=== PATIENT | female | born 1950 | race Caucasian/White ===

== ENCOUNTER 2020-07-12 11:14 | Outpatient (CLI) | payer MEDICARE, OTHER, SELFPAY ==
[2020-07-12 11:48] LABS: Basophils Absolute Auto 0.1 K/mm3 (0.0-0.1); Basophils Percent Auto 1.1 % (0.2-1.2); Eosinophils Absolute Auto 0.2 K/mm3 (0-0.3); Eosinophils Percent Auto 2.8 % (0-4.4); Hematocrit 35.1 % (37.0-47.0); Hemoglobin 11.4 g/dL (12.0-15.0); Immature Granulocyte Absolute 0.03 K/mm3 (0.00-0.031); Immature Granulocyte Percent A 0.6 % (0-0.5); Lymphocytes Absolute Auto 1.41 K/mm3 (0.9-3.2); Lymphocytes Percent Auto 26.3 % (18.3-44.2); Mean Corpuscular HGB Conc 32.5 g/dl (32-36); Mean Corpuscular Hemoglobin 28.2 pg (26-34); Mean Corpuscular Volume 86.9 fl (80-100); Mean Platelet Volume 8.8 fl (7.4-10.4); Monocytes Absolute Auto 0.3 K/mm3 (0.1-0.6); Neutrophils Absolute Auto 3.4 K/mm3 (1.3-6.7); Neutrophils Percent Auto 63.2 % (45.5-73.1); Platelet Count Result 184 k/mm3 (150-375); Red Blood Count 4.04 M/mm3 (4.2-5.4); Red Cell Distribution Width 13.2 % (11.5-14.5); White Blood Count 5.4 K/mm3 (4.5-10.0)
--- NOTE | 2020-07-12 11:51 | ECG_ITS ---
Measurements Intervals [place] Rate: 63 P: 55 MT: 156 QRS: 23 QRSD: 97 T: 33 QT: 416 QTc: 427 Interpretive Statements SINUS RHYTHM INCOMPLETE RIGHT BUNDLE BRANCH BLOCK BORDERLINE ECG Electronically Signed On 07-12-2020 11:58:55 GLOBAL COMMODITY MANAGER by Wan Pedraza D.O.
[2020-07-12 12:02] LABS: Anion Gap 2 mmol/L (8-16); Aspartate Amino Transferase 22 U/L (14-36); Blood Urea Nitrogen 17 mg/dL (7-17); Calcium 9.4 mg/dL (8.4-10.2); Carbon Dioxide 31 mmol/L (22-30); Chloride 104 mmol/L (98-107); Cholesterol 171 mg/dL (0-200); Estimated Glomerular Filt Rate > 60; Glucose 233 mg/dL (65-105); HDL Direct 74 mg/dL; Potassium 4.2 mmol/L (3.4-5.0); Sodium 137 mmol/L (137-145); Triglycerides 108 mg/dL (<150)
[2020-07-12 12:13] LABS: LDL Cholesterol Direct 81 mg/dL
== END 2020-07-12 11:15 | disposition home or self-care (01) ==
PROVIDERS: PCP Family Medicine Adolescent Medicine; Visit Provider Internal Medicine Cardiovascular Disease
DX: I48.0 Paroxysmal atrial fibrillation (principal); I10 Essential (primary) hypertension; Z82.49 Family history of ischemic heart disease and other diseases of the circulatory system; G47.33 Obstructive sleep apnea (adult) (pediatric); E78.2 Mixed hyperlipidemia; E11.69 Type 2 diabetes mellitus with other specified complication
CPT/HCPCS: 36415; 80048; 80061; 84450; 85025; 93005

== ENCOUNTER → 2021-09-26 08:40 | Outpatient (CLI) | payer MEDICARE, OTHER, SELFPAY ==
--- NOTE | ~2021-09-26 | MR_ITS ---
EXAMINATION: MR lumbar spine wo con DATE: 09/26/2021 09:20 INDICATION: Low back pain. Right leg pain. TECHNIQUE: Magnetic resonance imaging (MRI) of the lumbar spine was performed without intravenous con trast. Sequences included sagittal T2-weighted FSE, sagittal T2-weighted FS FSE, sagittal T1-weighted FSE, and axial T2-weighted FSE. COMPARISON: None FINDINGS: Bone alignment is normal. Vertebral body heights are normal. There is severely decreased di sc height at L5-S1 with endplate remodeling. The distal spinal cord signal intensity is normal. The c onus medullaris is at L1. The following disc levels are specifically discussed: L1-L2: The disc does not extend beyond the endplate margin. There is no facet joint osteoarthritis. T here is no neural foraminal stenosis. There is no central canal stenosis. L2-L3: There is a central protrusion with annular fissure. There is mild right facet joint osteoarthr itis. There is mild right neural foraminal stenosis. There is mild central canal stenosis. L3-L4: The disc is bulging. There is mild bilateral facet joint osteoarthritis. There is mild bilater al neural foraminal stenosis. There is mild central canal stenosis. L4-L5: The disc is bulging with superimposed central extrusion. There is mild right and moderate left facet joint osteoarthritis. There is mild bilateral neural foraminal stenosis. There is moderate nikita tral canal stenosis. L5-S1: The disc is bulging and has an annular fissure. There is moderate bilateral facet joint osteoa rthritis. There is mild bilateral neural foraminal stenosis. There is mild central canal stenosis. IMPRESSION: 1. Severe lower lumbar spondylosis. Reviewed, dictated and finalized at location A.
== END ==
PROVIDERS: PCP Family Medicine Adolescent Medicine; Visit Provider Family Medicine Adolescent Medicine
DX: M47.817 Spondylosis without myelopathy or radiculopathy, lumbosacral region (principal); M54.31 Sciatica, right side; M48.07 Spinal stenosis, lumbosacral region
CPT/HCPCS: 72148

== ENCOUNTER → 2021-12-28 07:42 | Outpatient (CLI) | payer MEDICARE, OTHER, SELFPAY ==
--- NOTE | ~2021-12-28 | US_ITS ---
US right upper quadrant INDICATION: Right upper quadrant pain. Elevated liver enzymes. PROCEDURE: Realtime right upper abdominal ultrasound. COMPARISON: No prior studies for comparison. FINDINGS: The pancreas is normal without focal mass or pancreatic ductal dilation. Liver echotexture is increased, consistent with fatty infiltration. There is normal directional flow in the portal ve in. There are gallstones. Common bile duct measures 9 mm. No sonographic Watts's sign. IMPRESSION: 1: Cholelithiasis with biliary dilatation. Consider cholecystitis in the appropriate clinical setting . 2: Hepatic steatosis. Reviewed, dictated and finalized at location A. IMPRESSION: 1: Cholelithiasis with biliary dilatation. Consider cholecystitis in the approp riate clinical setting. 2: Hepatic steatosis.
== END ==
PROVIDERS: PCP Family Medicine Adolescent Medicine; Visit Provider Physician Assistant
DX: R10.11 Right upper quadrant pain (principal); K76.0 Fatty (change of) liver, not elsewhere classified; K80.20 Calculus of gallbladder without cholecystitis without obstruction
CPT/HCPCS: 76705

== ENCOUNTER 2022-01-08 13:28 | Outpatient (CLI) | payer MEDICARE, OTHER, SELFPAY ==
--- NOTE | 2022-01-08 13:43 | ECG_ITS ---
Measurements Intervals [place] Rate: 73 P: 61 [place]: 154 QRS: -14 QRSD: 93 T: 5 QT: 396 QTc: 439 Interpretive Statements SINUS RHYTHM COMPARED TO ECG 07/12/2020 11:57:02 NO SIGNIFICANT CHANGES Electronically Signed On 01-08-2022 16:42:41 CDT by Barby Oh M.D.
[2022-01-08 14:22] LABS: Amylase 50 U/L (30-110)
== END 2022-01-08 13:29 | disposition home or self-care (01) ==
LOC: ANHSURGERY 13:38
PROVIDERS: PCP Family Medicine Adolescent Medicine; Visit Provider Surgery
DX: K80.10 Calculus of gallbladder with chronic cholecystitis without obstruction (principal); I10 Essential (primary) hypertension; Z01.818 Encounter for other preprocedural examination
CPT/HCPCS: 36415; 82150; 86850; 86900; 86901; 93005

== ENCOUNTER 2022-01-11 14:52 | Inpatient (IN) | payer MEDICARE, OTHER, SELFPAY ==
--- NOTE | 2022-01-08 09:45 | PC.NURSE ---
Report to the Outpatient Waiting Room, entrance under the green pavilion located off [facility], at time __1000 on date _01/10/22 . OR Time: 1200 . - You and your visitor will be asked a series of questions to screen for COVID 19 for your protection. - Only one visitor is allowed at this time. - The patient visitor is requested to leave or wait in car when not with patient. - A mask is required within the hospital. Patients may have clear liquids (water, carbonated beverages, clear teas, apple juice) until 3 hours prior to surgery with a maximum of 20 ounces. - No food from midnight until time of surgery - Infants may have breast milk until 4 hours before surgery, infant formula 6 hours prior to surgery. - Children will be allowed to drink immediately following surgery. If applicable, please bring a bottle or sippy cup to assist with drinking. Juice, water, soda, and popsicles are readily available. For infants on formula, please bring formula the day of surgery. Pacifiers are allowed. Take the following medications with a SIP of water the morning of surgery: ___METOPROLOL Medications to discontinue per physician APIXABAN 2 DAYS PRE OP PER DR HUMPHRIES Date to take last dose___01/07/22 Please no make-up, nail bengali, hairspray, perfume, deodorant, or body powder the day of surgery. No jewelry (including any body piercings) or valuables the day of surgery, leave them at home. Please take a shower or bath the night before, or the morning of, surgery with an antibacterial soap. Wear comfortable, loose fitting clothing. Children are encouraged to wear pajamas. - Jewelry must be removed prior to entering the operating room. Rings and piercings that are not removed may be cut off. - The hospital will not accept responsibility for valuables. - Please leave all valuables, including medications, at home the day of surgery.HIBICLENS SHOWER MORNING OF SURGERY If you are going home after surgery, a licensed reach lift truck driver must drive you home. - NO public transportation without another adult. - We recommend that an adult stay with you for 24 hours following discharge. - We also recommend that you do not drive, make important decision, drink alcoholic beverages, or take any drugs that were not prescribed by your health care provider for at least 24 hours after your discharge time. For Pediatric surgeries, we recommend two adults accompany the child home (only one inside the building at this time). Follow any additional instructions given to you from your surgeon. If you or anyone in your household have experienced Covid symptoms in the past week, please notify your surgeon or the nurse liaison at the phone number below for possible testing. Telephone instructions given to ___PATIENT and asked if any additional questions and then verbalized understanding. Patient advised to call surgeon office or pre surgery nurse liaison [phone] if any additional questions.
[2022-01-08 11:05] VITALS: BMI 31.9
--- NOTE | 2022-01-09 13:45 | WPDANESEPPF ---
Anes - Initial Pre Proc Eval Procedure: Operation Date: 01/10/22 12:00 Proposed Procedures p Laparoscopic Cholecystectomy with Intraoperative Cholangiogram, - Rocco Taylor MD s Repair Periumbilical Ventral Hernia with Mesh - Rocco Taylor MD Date/Time: 01/09/22 13:45 Surgeon: Rocco Taylor MD Pre Op Diagnosis: chronic cholecystitis with stones, ventral hernia Patient Data Age: 71 Gender: F Height: 1.73 m Weight: 95.3 kg Allergies Allergy/AdvReac Type Severity Reaction Status Date / Time quinapril Allergy Intermediate Anaphylactic Verified 01/10/22 10:15 Shock codeine Allergy Mild Vomiting Verified 01/10/22 10:15 Penicillins Allergy Mild Rash Verified 01/10/22 10:15 lisinopril Allergy Unknown Hives Verified 01/10/22 10:15 hydrocodone AdvReac Unknown N&V Verified 01/10/22 10:15 metformin AdvReac Unknown diarrhea Verified 01/10/22 10:15 tramadol Allergy Mild Nausea Uncoded 01/10/22 10:15 Home Medications Medication Instructions Recorded Confirmed Type apixaban 5 mg tablet (Eliquis) 5 mg PO BID 09/17/21 01/10/22 History hydrochlorothiazide 25 mg tablet 25 mg PO DAILY 09/17/21 01/10/22 History simvastatin 5 mg tablet 5 mg PO EVERY OTHER DAY 09/17/21 01/10/22 History glimepiride 2 mg tablet See Rx Instructions .Route 10/22/21 01/10/22 Rx .COMPLEX #90 tabs losartan 100 mg tablet 100 mg PO DAILY #90 tabs 10/29/21 01/10/22 Rx blood sugar diagnostic (OneTouch #100 ea 12/07/21 01/07/22 Rx Ultra Test strips) metoprolol succinate 50 mg See Rx Instructions .Route 12/17/21 01/10/22 Rx tablet,extended release 24 hr .COMPLEX #90 tabs hydroxyzine HCl 25 mg tablet 25 mg PO TID PRN itching #60 tabs 12/26/21 01/10/22 Rx cetirizine 10 mg tablet (Zyrtec) 10 mg PO DAILY 01/08/22 01/10/22 History ibuprofen 400 mg tablet 400 mg PO PRN PRN Pain 01/08/22 01/10/22 History potassium chloride 10 mEq 10 meq PO DAILY 01/08/22 01/10/22 History tablet,extended release Patient hx anesthesia problems: none Family hx anesthesia problems: none Results Review: All pre-operative results and documents have been reviewed as part of the pre-operative evaluation. [facility] Past Medical History Medical History (Updated 01/09/22 @ 13:46 by Silvino Martínez DO) Afib Asthma Diabetes type 2, controlled High cholesterol HTN (hypertension) ZURDO (obstructive sleep apnea) PONV (postoperative nausea and vomiting) Surgical History Surgical History Hx of prior ablation treatment Hx of tonsillectomy Family History Family History Father Cerebrovascular accident Diabetes mellitus Heart disease Laryngeal cancer Mother Glioblastoma Sibling Diabetes mellitus CHF (congestive heart failure) Social History Social History Social History: caffeine use- 1-2 cups of tea per week Smoking packs per day: 0.25 Smoking cigarettes per day: 5.0 Years smoked: 10 Smoking pack-years: 2.50 Smoking status: Former smoker Tobacco type: cigarettes Second hand tobacco smoke exposure: No Smoking end date: 06/02/79 Alcohol intake: current Alcohol use details: rare use- wine Substance use: never Substance use type: does not use Living arrangements: with family Additional living arrangements comments: Patient is . Two people total live in the home. 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
[2022-01-10] VITALS (13 sets, daily range): BP systolic 108–168; BP diastolic 48–71; PULSE 50–73; RESP 14–16; TEMP 36–36.6; O2SAT 99–100
[2022-01-10] MEDS: ACETAMINOPHEN 500 MG TABLET 1000 MG PO (10:23)
[2022-01-10 10:48] LABS: Glucose Point of Care 194 mg/dl (65-105)
[2022-01-10] MEDS: LACTATED RINGERS 1,000 ML 30 ML IV CONT ×2 (10:55→14:13)
[2022-01-10] MEDS: KETOROLAC 15 MG/ML VIAL (*BKC) IV PUSH (10:55)
--- NOTE | 2022-01-10 12:15 | WPDHPUPDATE1 ---
History and Physical Update Update Date/Time: 01/10/22 12:15 History and Physical has been reviewed, including an updated exam of the patient. There are NO changes in the patient's condition. Risks, benefits, and alternatives have been discussed and questions answered. Patient agrees to proceed with procedure.
[2022-01-10] MEDS: ceFAZolin 2 GM/D5W 50 ML 2 GM/50 ML BAG IVPB ×2 (12:21→20:42)
[2022-01-10] MEDS: BUPIVACAINE/EPINEPHRINE 0.25% 50 ML VIAL INFILTRATE (13:31)
[2022-01-10 14:27] LABS: Glucose Point of Care 204 mg/dl (65-105)
[2022-01-10] MEDS: ONDANSETRON INJ 4 MG/2 ML VIAL IV PUSH (15:09)
--- NOTE | 2022-01-10 15:44 | W.PM.PROC2 ---
Procedure Note - Detailed Date of Procedure 01/10/22 Pre-op Diagnosis chronic cholecystitis with stones, ventral hernia Post-op Diagnosis Other (Choledocholithiasis with chronic cholecystitis, ventral hernia) Procedure Performed Laparoscopic cholecystectomy with intraoperative cholangiogram, repair of ventral hernia with Ventralex ST underlay mesh Surgeon Rocco Taylor MD Packing Floor Worker Juany Mackey EMBRYOLOGY PROFESSOR Anesthesia General and Local (0.25% bupivacaine with epinephrine) Indications Patient is a 71-year-old woman with recurrent right upper quadrant abdominal pain, abnormal LFTs and some other symptoms of common bile duct stones. She is taken to surgery now for laparoscopic cholecystectomy. She also has a ventral hernia just below the umbilicus and is having this repaired at the same procedure. Findings Intraoperative cholangiogram showed at least 1 if not several stones in the distal common bile duct. The gallbladder itself showed evidence of chronic inflammation and gallstones. Ventral hernia was just below the umbilicus and there was a small umbilical hernia just above it. Description of Procedure The patient was taken to surgery and induced into general anesthesia. The abdomen was prepped and draped. Trocars were placed in the usual fashion using local anesthetic and applied Medical optical trocars. A 5 mm camera was used. After insufflation, some omental adhesions were taken down off the gallbladder. We then used a laparoscopic aspirator and decompress the gallbladder. The cholecystotomy was closed with a Vicryl endoloop. The gallbladder was then retracted anterosuperiorly. Dissection was carried out in the cholecystohepatic triangle. The cystic duct and cystic artery were dissected out very clearly. We dissected the gallbladder off the liver at its lower 3rd. Critical view was achieved. I then securely clipped and divided the cystic artery. A clip was placed on the distal gallbladder just above the cystic duct. The cystic duct scissors were then used and a small opening was made in the very proximal cystic duct. Cholangiogram catheter was then passed into the cystic duct. C-arm fluoroscopy was brought into the field and positioned appropriately. We proceeded then with cine fluoroscopy intraoperative cholangiogram. 2 runs were made. The duodenum never filled. It appeared that there was distal common bile duct stones preventing duodenal filling. The radiologist looked at the films and also felt there was at least 1 and possibly several stones in the distal common bile duct. The cholangiogram catheter was then removed. We securely clipped and divided the cystic duct. The gallbladder was then dissected free of the remaining attachments to the liver. Cautery was used for hemostasis. Once the gallbladder was freed entirely, it was placed in Endo-Catch bag and retrieved through the 10 11 epigastric trocar site. We replaced the epigastric trocar. We then reviewed the gallbladder fossa and right upper quadrant. Irrigation and suctioning were then carried out. All looked good with no evidence of bleeding or bile leakage. I used the Jaycob cone and Jaycob-Mira suture Passer device. An 0 Vicryl suture was used to close the fascia at the epigastric trocar site. We then evacuated CO2 and removed the trocar sleeves. All skin wounds were closed with subcuticular 4-0 Monocryl skin suture. We then turned our attention to the ventral hernia. An infraumbilical curved incision was marked on the skin. Local was infiltrated in the area of the anticipated incision. Incision was made dissection through the skin into the area of the hernia. The hernia was quite large. We dissected the hernia free from the surrounding subcutaneous. The hernia defect was below the umbilicus but there was also a small umbilical hernia just a bit above the ventral hernia. Once the hernia had been dissected down to the fascia, I divided the hernia sac at the fascial le
--- NOTE | 2022-01-10 15:45 | WPDCN ---
Assessment and Plan Assessment and plan (1) Chronic cholecystitis: Code(s): K81.1 - Chronic cholecystitis Status: Acute Assessment and Plan: Postoperative day 0 status post laparoscopic cholecystectomy with IOC. Wound care, pain control deferred to primary service. (2) Choledocholithiasis: Code(s): K80.50 - Calculus of bile duct without cholangitis or cholecystitis without obstruction Status: Acute Assessment and Plan: Dr. Hagen consulted for ERCP. (3) Ventral hernia: Code(s): K43.9 - Ventral hernia without obstruction or gangrene Status: Acute Assessment and Plan: Postoperative day 0 status post hernia repair with mesh. (4) Type 2 diabetes mellitus with hyperglycemia: Code(s): E11.65 - Type 2 diabetes mellitus with hyperglycemia Status: Acute Assessment and Plan: Glucose has been running high recently. Initiate sliding scale insulin, Accu-Cheks, and hypoglycemic protocol. Check A1c. (5) Hypertension: Code(s): I10 - Essential (primary) hypertension Status: Acute Assessment and Plan: Blood pressures were reviewed and they are stable. Antihypertensives will reviewed and resumed as appropriate. Plan Thank you for allowing us to participate in this patient's care. Please do not hesitate to contact us with any questions. Supervising physician for this medical consultation is Dr. Ruthy Bridges. HPI Data of Consult Date/Time: 01/10/22 15:45 Requesting Physician: Rocco Taylor MD Consult Narrative Reason for consult: Postoperative medical management. Narrative: This is a very pleasant 71-year-old female with type 2 diabetes mellitus, hypertension, hyperlipidemia, sleep apnea, and paroxysmal atrial fibrillation status post cardiac ablation whom the hospitalist service has been consulted for management of her medical conditions postoperatively. She has been having gallbladder attacks since December 24 for which she was seen by both General surgery and Gastroenterology. A right upper quadrant ultrasound done on December 28 showed cholelithiasis with biliary dilatation and plans were made for cholecystectomy with IOC today. Concurrently she underwent repair of a ventral hernia with mesh. There were no immediate complications documented though she was noted to have choledocholithiasis and thus Dr. Hagen has been consulted for ERCP. Her estimated blood loss was minimal. At the time my evaluation she is doing well and complains of muscle pain in her abdomen from the incisions. She has not had postoperative fever, chills, sweats, chest pain, shortness to breath, or vomiting. Review of Systems Review of Systems: Twelve systems were reviewed. Her glucose has been running high, over 300 the last several days, which is unusual for her. No blurry vision, polydipsia, or polyuria. She is not currently using her CPAP as there is apparently a recall on the machine. Except as documented, all other systems were reviewed and are negative. [facility] Past Medical History Medical History (Updated 01/11/22 @ 00:43 by Candis Hyatt PA-C) Asthma Diabetic polyneuropathy Hyperlipidemia Hypertension Obstructive sleep apnea Not currently using CPAP. Paroxysmal atrial fibrillation Status post cardiac ablation. Type 2 diabetes mellitus Surgical History Surgical History (Updated 01/11/22 @ 00:34 by Candis Hyatt PA-C) History of bunionectomy History of cardiac radiofrequency ablation (2015) History of laparoscopic cholecystectomy (01/10/22) With intraoperative cholangiogram. History of surgical removal of ganglion cyst Right 1st toe, scalp. History of tonsillectomy History of ventral hernia repair (01/10/22) Done at the time of laparoscopic cholecystectomy. Family History Family History Father Cerebrovascular accident Diabetes mellitus Heart disease L
--- NOTE | 2022-01-10 16:11 | WPDGICN ---
Assessment and Plan Assessment and plan (1) Choledocholithiasis: Code(s): K80.50 - Calculus of bile duct without cholangitis or cholecystitis without obstruction Status: Acute Assessment and Plan: OR cholangiogram today confirms stone or stones in the distal common bile duct. I explained to the patient that we can usually remove the stones by ERCP. I explained the use of anesthesia, the possible risk of bleeding, perforation, or pancreatitis. I Explainedthe pancreatitis occurs about 3% of individuals. We try to reduce the risk by avoiding cannulation of the pancreatic duct and by administering and anti-inflammatory suppository. She understands the the procedure and risks and wishes to proceed. (2) Afib: Code(s): I48.91 - Unspecified atrial fibrillation Status: Acute Assessment and Plan: she is on apixaban but this has been held for the last several days. (3) Gallstones: Code(s): K80.20 - Calculus of gallbladder without cholecystitis without obstruction Status: Acute Assessment and Plan: She underwent laparoscopic cholecystectomy today. GI Consult Note Consult date/time: 01/10/22 16:11 HPI: Maegan Irving is a 71 year old female with atrial fibrillation, hypertension, and diabetes, whom I am asked to see because of suspected choledocholithiasis. She has developed epigastric pain that was found to be due to gallstones . She underwent laparoscopic cholecystectomy today and a cholangiogram revealed stone material in the very distal common bile duct. The patient states that her pain a week ago Friday was accompanied by dark urine and some itching. She had blood work on December 26 that revealed a bilirubin of 3, AST 146 ALT 441 and alkaline phosphatase 196. These were repeated January 07 and were nearly normal with bilirubin 0.9 AST 52 and ALT down to 83 patient states that later that day she developed pain and her urine became dark again when she had an attack. She has no history of liver disease or hepatitis he has never had pancreatitis. She is on apixaban but this has been held prior to her surgery. Review of Systems Review of Systems: All systems reviewed & are unremarkable except as noted in HPI and below PMFSH Past Medical History Medical History Afib Asthma Diabetes type 2, controlled High cholesterol HTN (hypertension) ZURDO (obstructive sleep apnea) PONV (postoperative nausea and vomiting) Surgical History Surgical History Hx of prior ablation treatment Hx of tonsillectomy Family History Family History Father Cerebrovascular accident Diabetes mellitus Heart disease Laryngeal cancer Mother Glioblastoma Sibling Diabetes mellitus CHF (congestive heart failure) Social History Social History Social History: caffeine use- 1-2 cups of tea per week Smoking packs per day: 0.25 Smoking cigarettes per day: 5.0 Years smoked: 10 Smoking pack-years: 2.50 Smoking status: Former smoker Tobacco type: cigarettes Second hand tobacco smoke exposure: No Smoking end date: 06/02/79 Alcohol intake: never Alcohol use details: rare use- wine Substance use: never Substance use type: does not use Living arrangements: with family Additional living arrangements comments: Patient is . Two people total live in the home. 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
[2022-01-10] MEDS: LACTATED RINGERS 1,000 ML 100 ML IV CONT (16:58)
[2022-01-10] MEDS: ACETAMINOPHEN 500 MG TABLET PO (21:57)
[2022-01-10 23:11] LABS: Glucose Point of Care 252 mg/dl (65-105)
[2022-01-11] VITALS (15 sets, daily range): BP systolic 131–169; BP diastolic 50–71; PULSE 45–74; RESP 12–25; TEMP 36.2–36.6; O2SAT 97–100
--- NOTE | ~2022-01-11 | XR_ITS ---
XR cholangiogram surg 1st inj DATE: 01/10/2022 13:27 INDICATION: Stones. Intraoperative cholangiogram. TECHNIQUE: 56.5 seconds fluoroscopy time 27.43 mGY 2 Cine runs during intraoperative injection of contrast material COMPARISON: None FINDINGS: There are multiple filling defects within the common bile duct, with a larger stone creatin g a meniscus sign distally, obstructing passage of contrast material, with no contrast material reach ing the duodenum. Common bile duct is mildly dilated. IMPRESSION: Choledocholithiasis, with obstruction of the distal common bile duct Reviewed, dictated and finalized at [facility]. Reviewed, dictated and finalized at location [facility]. IMPRESSION: Choledocholithiasis, with obstruction of the distal common bile regina t
--- NOTE | ~2022-01-11 | XR_ITS ---
XR ERCP ERCP procedure TECHNIQUE: Fluoroscopy used during ERCP examination performed by [David Hagen MD] on 022. 74 seconds of fluoroscopy time with 2 fluoroscopic images captured. ] FINDINGS: Correlate with procedure note. IMPRESSION: Fluoroscopy used during ERCP procedure. Please refer to procedural report for details. Reviewed, dictated and finalized at location [facility].
[2022-01-11] MEDS: IBUPROFEN IV 800 MG/200 ML 800 MG/200 ML BAG 400 MG IVPB (01:01)
[2022-01-11] MEDS: LACTATED RINGERS 1,000 ML 100 ML IV CONT (03:40)
[2022-01-11] MEDS: ceFAZolin 2 GM/D5W 50 ML 2 GM/50 ML BAG IVPB ×2 (03:43→12:05)
[2022-01-11 05:42] LABS: Hemoglobin 10.1 g/dL (12.0-15.0); Mean Corpuscular HGB Conc 32.6 g/dl (32-36); Mean Corpuscular Hemoglobin 29.4 pg (26-34); Mean Corpuscular Volume 90.1 fl (80-100); Mean Platelet Volume 9.6 fl (7.4-10.4); Platelet Count Result 165 k/mm3 (150-375); Red Blood Count 3.44 M/mm3 (4.2-5.4); Red Cell Distribution Width 12.8 % (11.5-14.5); White Blood Count 7.5 K/mm3 (4.5-10.0)
[2022-01-11 05:52] LABS: Alanine Aminotransferase 140 U/L (6-35); Albumin Level 3.3 g/dL (3.5-5.1); Alkaline Phosphatase 150 U/L (38-126); Anion Gap 8 mmol/L (8-16); Aspartate Amino Transferase 49 U/L (14-36); Bilirubin,Total 0.6 mg/dL (0.2-1.3); Blood Urea Nitrogen 34 mg/dL (7-17); Calcium 8.3 mg/dL (8.4-10.2); Carbon Dioxide 29 mmol/L (22-30); Chloride 101 mmol/L (98-107); Estimated CRCL calculation 34 ml/min; Estimated Glomerular Filt Rate 32; Glucose 158 mg/dL (65-110); Potassium 3.4 mmol/L (3.4-5.0); Sodium 138 mmol/L (137-145)
[2022-01-11 05:55] LABS: Hemoglobin A1C 6.8 % (<5.7)
[2022-01-11 07:40] LABS: Glucose Point of Care 151 mg/dl (65-105)
--- NOTE | 2022-01-11 08:27 | PM.PNGS ---
Progress Note: A&P Assessment and Plan (1) ANAYA (acute kidney injury): Code(s): N17.9 - Acute kidney failure, unspecified Status: Acute Assessment and Plan: creatinine has increased markedly from preop and is 1.6 today. Will discontinue IV ibuprofen and start saline with 20 mEq KCL. Recheck again tomorrow. Hopefully will resolve quickly. (2) Ventral hernia: Code(s): K43.9 - Ventral hernia without obstruction or gangrene Status: Chronic Assessment and Plan: Repair intact. Doing well (3) Chronic cholecystitis due to cholelithiasis with choledocholithiasis: Code(s): K80.64 - Calculus of gallbladder and bile duct with chronic cholecystitis without obstruction Status: Chronic Assessment and Plan: to have ERCP today with common bile duct stones noted on cholangiogram yesterday. Doing well status post laparoscopic cholecystectomy. (4) Type 2 diabetes mellitus: Code(s): E11.9 - Type 2 diabetes mellitus without complications Status: Acute Assessment and Plan: Hospitalist following and managing diabetes. Subjective Subjective Date/Time Seen: 01/11/22 08:27 Post Op day: 1 Patient reports: no new complaints, tolerating liquids well and afebrile Interval history: Mild discomfort status post laparoscopic cholecystectomy yesterday. No new complaints or problems. Review of Systems Review of Systems: All systems reviewed & are unremarkable except as noted in HPI and below ( HPI) Exam Const: General: comfortable and no acute distress; No confusion Orientation/consciousness: patient oriented x3 and No confusion GI: Inspection: non-distended and incision ( incisions dry and healing well) GI Palp: Yes Soft to palpation, Yes Tenderness to palpation present (GI), No Guarding due to palpation present (GI) and No Rebound tenderness present Auscultation: normal bowel sounds Neuro: General: patient oriented x3, no focal motor deficits and No confusion Extrem: General: no calf tenderness and no edema Psych: Affect: normal affect Insight: Good insight present (Psych) Judgement: Good judgement present (Psych) Objective Data Vital Signs Vital Signs: Vital Signs - 24 hr 01/10/22 10:31 01/10/22 14:13 01/10/22 14:25 Temperature 36.0 C L 36.4 C L Pulse Rate 73 61 56 L Respiratory Rate 16 14 16 Blood Pressure 121/57 L 108/48 L 111/52 L Pulse Oximetry 100 100 100 Oxygen Delivery Room Air Simple Face Mask Simple Face Mask Oxygen Flow Rate 6 6 01/10/22 14:30 01/10/22 14:45 01/10/22 14:49 Temperature Pulse Rate 63 52 L Respiratory Rate 14 14 Blood Pressure 116/55 L 129/54 L Pulse Oximetry 100 100 100 Oxygen Delivery Simple Face Mask Simple Face Mask Room Air Oxygen Flow Rate 6 6 01/10/22 15:00 01/10/22 15:15 01/10/22 15:40 Temperature 36.5 C Pulse Rate 54 L 59 L 50 L Respiratory Rate 14 16 14 Blood Pressure 124/49 L 137/55 L 133/48 L Pulse Oximetry 100 100 99 Oxygen Delivery Room Air Room Air Oxygen Flow Rate 01/10/22 15:55 01/10/22 16:25 01/10/22 17:25 Temperature 36.3 C L 36.4 C L 36.4 C Pulse Rate 50 L 54 L 62 Respiratory Rate 16 14 14 Blood Pressure 124/71 140/56 L 168/57 H Pulse Oximetry 100 99 99 Oxygen Delivery Oxygen Flow Rate 01/10/22 20:31 01/11/22 00:54 01/11/22 01:01 Temperature 36.6 C 36.5 C 36.5 C Pulse Rate 59 L 58 L Respiratory Rate 16 12 Blood Pressure 145/60 H 142/53 H Pulse Oximetry 100 97 Oxygen Delivery Oxygen Flow Rate 01/11/22 03:56 Temperature 36.4 C L Pulse Rate 53 L Respiratory Rate 16 Blood Pressure 142/59 H Pulse Oximetry 99 Oxygen Delivery Oxygen Flow Rate Intake/Output Intake/Output: Intake & Output 01/08/22 01/09/22 01/10/22 01/11/22 23:59 23:59 23:59 23:59 Intake Total 400 1250 Output Total 400 Balance 400 850 Meds/Results Medications: Active Medications Generic Name Dose Route Start Last Admin Trade Name Peter Ramirez
[2022-01-11] MEDS: LOSARTAN POTASSIUM 100 MG TABLET PO (09:02)
[2022-01-11] MEDS: METOPROLOL SUCCINATE EXT REL 50 MG TABCR BY MOUTH (09:02)
[2022-01-11] MEDS: KCL 20MEQ/0.9% SOD CHL 1,000 ML 125 ML IV CONT ×2 (09:30→20:51)
[2022-01-11] MEDS: ACETAMINOPHEN 500 MG TABLET PO (09:31)
--- NOTE | 2022-01-11 11:01 | PM.IMPN ---
Progress Note: A&P Assessment and Plan (1) Chronic cholecystitis: Code(s): K81.1 - Chronic cholecystitis Status: Acute Assessment and Plan: Postoperative day 1 status post laparoscopic cholecystectomy with IOC. Wound care, pain control deferred to surgery. LFTs- AST 49, ALT 140, Alk Phos 150, Tbili 0.6 (2) Choledocholithiasis: Code(s): K80.50 - Calculus of bile duct without cholangitis or cholecystitis without obstruction Status: Acute Assessment and Plan: Dr. Hagen consulted for ERCP today. (3) ANAYA (acute kidney injury): Code(s): N17.9 - Acute kidney failure, unspecified Status: Acute Assessment and Plan: BUN 34, creatinine 1.6, GFR 32. Baseline GFR >60. holding HCTZ. Consider holding ARB if renal function is still elevated in am. Continue IV hydration. Monitor strict I/O. Repeat chemistry tomorrow. (4) Ventral hernia: Code(s): K43.9 - Ventral hernia without obstruction or gangrene Status: Chronic Assessment and Plan: Postoperative day 1 status post hernia repair with mesh. Managed per Surgery. (5) Type 2 diabetes mellitus with hyperglycemia: Code(s): E11.65 - Type 2 diabetes mellitus with hyperglycemia Status: Acute Assessment and Plan: Serum and POC glucose reviewed and <180 mg/dL today. A1c 6.8%. She is not on home medications for diabetes. Continue aspart sliding scale insulin, Accu-Cheks, and hypoglycemic protocol. Consider adding basal insulin if glucose is >200 mg/dL. (6) Hypertension: Code(s): I10 - Essential (primary) hypertension Status: Acute Assessment and Plan: Blood pressures were reviewed and stable 135/55 to 145/55. Continue Losartan, Metoprolol at home doses. Holding HCTZ while patient is receiving IV hydration. (7) Paroxysmal atrial fibrillation: Code(s): I48.0 - Paroxysmal atrial fibrillation Status: Chronic Assessment and Plan: Most recent EKG shows sinus rhythm and heart sounds regular. Continue metoprolol. Resume Eliquis when okay with surgery. Plan Thank you for allowing us to participate in this patient's care. Please do not hesitate to contact us with any questions. Time Spent With Patient Time with patient: 15 - 25 minutes Subjective Date/time seen: 01/11/22 11:01 Patient is a 71 yo female with type 2 diabetes mellitus, hypertension, hyperlipidemia, paroxysmal atrial fibrillation on Eliquis. She is POD1 lap sb with intraoperative cholangiogram and ventral hernia repair. She reports some abdominal pain and belching, but denies nausea or vomiting. No flatus at this time. She has been walking in the hallway and denies chest pain, SOB, dizziness, palpitations, or unsteady gait. She is scheduled for ERCP today for choledocholithiasis. Review of Systems Review of Systems: All systems reviewed & are unremarkable except as noted in HPI and below Exam Narrative: General: No acute distress. Sitting up in the chair. HEENT: Normocephalic. Sclera non-icteric. PERRL, EOMI. Conjunctivae anicteric. Oral mucosa moist. Hearing grossly normal. Neck: Supple. No JVD. Respiratory: RR unlabored at rest. Lungs are clear to auscultation bilaterally. No adventitious breath sounds. Cardiovascular: Regular rate and rhythm with S1-S2. No murmur, gallop or rub. Gastrointestinal: Incisional sites are well approximated. Lap sites x5 and distal umbical incision. Hypoactive bowel sounds. Mild tenderness to palpation. No peritoneal signs. Skin: Warm and dry. She is not jaundiced. Xerosis bilateral feet plantar surface. Extremities: No cyanosis, clubbing, or edema. Radial and pedal pulses equal and palpable. Neurological: Alert. AOx4. Cranial nerves 2-12 are grossly intact. No gross focal deficits to casual conversation. Psychiatric: Pleasant and cooperative with normal mood and affect. Objective Data Vital Signs Elodia
[2022-01-11 11:49] LABS: Glucose Point of Care 159 mg/dl (65-105)
[2022-01-11 13:21] LABS: Glucose Point of Care 152 mg/dl (65-105)
[2022-01-11] MEDS: LACTATED RINGERS 1,000 ML 150 ML IV CONT (13:28)
--- NOTE | 2022-01-11 13:47 | WPDANESEPPF ---
Anes - Initial Pre Proc Eval Procedure: Operation Date: 01/11/22 14:15 Proposed Procedures p Endoscopic Retro Cholangiopancreatogram - David Hagen MD Date/Time: 01/11/22 13:47 Surgeon: Rocco Taylor MD Pre Op Diagnosis: chronic cholecystitis with stones, ventral hernia Patient Data Age: 71 Gender: F Height: 1.73 m Weight: 95.7 kg Last Vital Signs Temp 36.6 C 01/11/22 10:08 Pulse 52 L 01/11/22 13:27 Resp 18 01/11/22 13:27 BP 135/55 L 01/11/22 13:27 Pulse Ox 99 01/11/22 13:27 O2 Del Method Room Air 01/11/22 13:27 O2 Flow Rate 6 01/10/22 14:45 Allergies Allergy/AdvReac Type Severity Reaction Status Date / Time quinapril Allergy Severe Anaphylactic Verified 01/11/22 13:23 Shock codeine Allergy Mild Vomiting Verified 01/11/22 13:23 Penicillins Allergy Mild Rash Verified 01/11/22 13:23 lisinopril Allergy Unknown Hives Verified 01/11/22 13:23 hydrocodone AdvReac Unknown N&V Verified 01/11/22 13:23 metformin AdvReac Unknown diarrhea Verified 01/11/22 13:23 tramadol Allergy Mild Nausea Uncoded 01/11/22 13:23 Home Medications Medication Instructions Recorded Confirmed Type apixaban 5 mg tablet (Eliquis) 5 mg PO BID 09/17/21 01/10/22 History hydrochlorothiazide 25 mg tablet 25 mg PO DAILY 09/17/21 01/10/22 History simvastatin 5 mg tablet 5 mg PO EVERY OTHER DAY 09/17/21 01/10/22 History glimepiride 2 mg tablet See Rx Instructions .Route 10/22/21 01/10/22 Rx .COMPLEX #90 tabs losartan 100 mg tablet 100 mg PO DAILY #90 tabs 10/29/21 01/10/22 Rx blood sugar diagnostic (OneTouch #100 ea 12/07/21 01/10/22 Rx Ultra Test strips) metoprolol succinate 50 mg See Rx Instructions .Route 12/17/21 01/10/22 Rx tablet,extended release 24 hr .COMPLEX #90 tabs hydroxyzine HCl 25 mg tablet 25 mg PO TID PRN itching #60 tabs 12/26/21 01/10/22 Rx cetirizine 10 mg tablet (Zyrtec) 10 mg PO DAILY 01/08/22 01/10/22 History ibuprofen 400 mg tablet 400 mg PO PRN PRN Pain 01/08/22 01/10/22 History potassium chloride 10 mEq 10 meq PO DAILY 01/08/22 01/10/22 History tablet,extended release Laboratory Tests 01/10/22 01/10/22 01/11/22 14:21 21:55 05:26 WBC 7.5 K/mm3 K/mm3 (4.5-10.0) RBC 3.44 M/mm3 L M/mm3 (4.2-5.4) Hgb 10.1 g/dL L g/dL (12.0-15.0) Hct 31.0 % L % (37.0-47.0) MCV 90.1 fl fl (80-100) MCH 29.4 pg pg (26-34) MCHC 32.6 g/dl g/dl (32-36) RDW 12.8 % % (11.5-14.5) Plt Count 165 k/mm3 k/mm3 (150-375) MPV 9.6 fl fl (7.4-10.4) Sodium Potassium Chloride Carbon Dioxide Anion Gap BUN Creatinine Estim Creat Clear Calc Estimated GFR Glucose POC Capillary Glucose 204 mg/dl H mg/dl 252 mg/dl H mg/dl (65-105) (65-105) Hemoglobin A1c Calcium Magnesium Total Bilirubin AST ALT Alkaline Phosphatase Total Protein Albumin 01/11/22 01/11/22 01/11/22 05:26 05:26 07:32 WBC RBC Hgb Hct MCV MCH MCHC RDW Plt Count MPV Sodium 138 mmol/L mmol/L (137-145) Potassium 3.4 mmol/L mmol/L (3.4-5.0) Chloride 101 mmol/L mmol/L (98-107) Carbon Dioxide 29 mmol/L mmol/L (22-30) Anion Gap 8 mmol/L mmol/L (8-16) BUN 34 mg/dL H D mg/dL (7-17) Creatinine 1.60 mg/dL H mg/dL (0.7-1.0) Estim Creat Clear Calc 34 ml/min ml/min Estimated GFR 32 L (59 - ) Glucose 158 mg/dL H mg/dL (65-110) POC Capillary Glucose 151 mg/dl H mg/dl (65-105) Hemoglobin A1c 6.8 % H % (<5.7) Calcium 8.3 mg/dL L mg/d
[2022-01-11] MEDS: INDOMETHACIN 50 MG SUPP.RECT RECTAL (14:28)
[2022-01-11 15:13] LABS: Glucose Point of Care 215 mg/dl (65-105)
--- NOTE | 2022-01-11 15:18 | SUR.OPER ---
DR. LEONE SPOKE WITH PATIENTS DAUGHTER, FIDE. REPORT GIVEN TO FLOOR NURSE.
[2022-01-11 16:50] LABS: Glucose Point of Care 189 mg/dl (65-105)
[2022-01-11 21:02] LABS: Glucose Point of Care 247 mg/dl (65-105)
[2022-01-12 00:35] VITALS: BP 135/54; PULSE 63; RESP 20; TEMP 36.2; O2SAT 98
[2022-01-12 05:30] VITALS: BP 146/57; PULSE 64; RESP 18; TEMP 36.6; O2SAT 97
[2022-01-12] MEDS: KCL 20MEQ/0.9% SOD CHL 1,000 ML 125 ML IV CONT (05:55)
[2022-01-12 06:21] LABS: Hematocrit 30.1 % (37.0-47.0); Hemoglobin 9.5 g/dL (12.0-15.0); Mean Corpuscular HGB Conc 31.6 g/dl (32-36); Mean Corpuscular Hemoglobin 29.2 pg (26-34); Mean Corpuscular Volume 92.6 fl (80-100); Mean Platelet Volume 9.7 fl (7.4-10.4); Platelet Count Result 170 k/mm3 (150-375); Red Blood Count 3.25 M/mm3 (4.2-5.4); Red Cell Distribution Width 13.2 % (11.5-14.5); White Blood Count 5.8 K/mm3 (4.5-10.0)
[2022-01-12 06:40] LABS: Alanine Aminotransferase 68 U/L (6-35); Albumin Level 3.2 g/dL (3.5-5.1); Alkaline Phosphatase 131 U/L (38-126); Anion Gap 8 mmol/L (8-16); Aspartate Amino Transferase 29 U/L (14-36); Bilirubin,Total 0.7 mg/dL (0.2-1.3); Blood Urea Nitrogen 23 mg/dL (7-17); Carbon Dioxide 26 mmol/L (22-30); Chloride 105 mmol/L (98-107); Estimated CRCL calculation 49 ml/min; Estimated Glomerular Filt Rate 49; Glucose 140 mg/dL (65-110); Potassium 3.8 mmol/L (3.4-5.0); Sodium 139 mmol/L (137-145)
[2022-01-12 08:16] VITALS: PULSE 64
[2022-01-12] MEDS: LOSARTAN POTASSIUM 100 MG TABLET PO (08:16)
[2022-01-12] MEDS: LORATADINE 10 MG TABLET PO (08:16)
[2022-01-12] MEDS: ACETAMINOPHEN 500 MG TABLET PO (08:16)
[2022-01-12] MEDS: METOPROLOL SUCCINATE EXT REL 50 MG TABCR BY MOUTH (08:16)
[2022-01-12 08:26] LABS: Glucose Point of Care 161 mg/dl (65-105)
--- NOTE | 2022-01-12 08:45 | WPDGIPROGNO ---
Progress Note: A&P Assessment and Plan (1) Chronic cholecystitis due to cholelithiasis with choledocholithiasis: Code(s): K80.64 - Calculus of gallbladder and bile duct with chronic cholecystitis without obstruction Status: Chronic Assessment and Plan: ERCP was done yesterday with successful removal of stone material mucoid material and sludge from the distal common bile duct. From my perspective she could be discharged today. She tolerated regular diet last night although she was not particularly hungry (2) Paroxysmal atrial fibrillation: Code(s): I48.0 - Paroxysmal atrial fibrillation Status: Chronic Assessment and Plan: she had been on apixaban prior to admission. I will defer to surgery as to when to restart it. From my perspective it could be started at any time. Subjective Date/time seen: 01/12/22 08:45 She states that she is feeling weak from not having eaten for few days and going through surgery. She is walking the halls however. She states that her pain is primarily in the right upper quadrant and perhaps a little better than it was yesterday. We discussed her ERCP, the fact that she had stone material, some larger stones and much debris/sludge, mucus and slightly purulent material that was removed. Exam Narrative: General: No acute distress. Sitting up in the chair. HEENT: Normocephalic. Sclera non-icteric. PERRL, EOMI. Conjunctivae anicteric. Oral mucosa moist. Hearing grossly normal. Neck: Supple. No JVD. Respiratory: RR unlabored at rest. Lungs are clear to auscultation bilaterally. No adventitious breath sounds. Cardiovascular: Regular rate and rhythm with S1-S2. No murmur, gallop or rub. Gastrointestinal: Incisional sites are well approximated. Lap sites x5 and distal umbical incision. normal bowel sounds. Mild tenderness to palpation. No peritoneal signs. Skin: Warm and dry. She is not jaundiced. Objective Data Vital Signs Vital Signs: Vital Signs - 24 hr 01/11/22 09:02 01/11/22 10:08 01/11/22 13:27 Temperature 36.6 C Pulse Rate 54 L 56 L 52 L Respiratory Rate 12 18 Blood Pressure 145/55 H 135/55 L Pulse Oximetry 98 99 Oxygen Delivery Room Air Oxygen Flow Rate 01/11/22 15:00 01/11/22 15:10 01/11/22 15:20 Temperature 36.2 C L Pulse Rate 74 63 54 L Respiratory Rate 17 20 17 Blood Pressure 152/71 H 140/68 139/60 Pulse Oximetry 100 100 99 Oxygen Delivery Simple Face Mask Simple Face Mask Room Air Oxygen Flow Rate 6 3 01/11/22 15:30 01/11/22 15:40 01/11/22 15:50 Temperature Pulse Rate 62 49 L 49 L Respiratory Rate 25 H 14 15 Blood Pressure 131/59 L 141/56 H 156/50 H Pulse Oximetry 99 99 99 Oxygen Delivery Room Air Room Air Room Air Oxygen Flow Rate 01/11/22 16:00 01/11/22 16:22 01/11/22 20:07 Temperature 36.4 C 36.2 C L Pulse Rate 52 L 56 L 45 L Respiratory Rate 21 H 14 20 Blood Pressure 143/58 H 169/58 H 138/66 Pulse Oximetry 100 99 99 Oxygen Delivery Room Air Oxygen Flow Rate 01/11/22 20:53 01/12/22 00:35 01/12/22 05:30 Temperature 36.2 C L 36.6 C Pulse Rate 63 64 Respiratory Rate 20 18 Blood Pressure 135/54 L 146/57 H Pulse Oximetry 98 97 Oxygen Delivery Room Air Oxygen Flow Rate 01/12/22 08:16 Temperature Pulse Rate 64 Respiratory Rate Blood Pressure Pulse Oximetry Oxygen Delivery Oxygen Flow Rate Intake/Output Intake/Output: Intake & Output 01/09/22 01/10/22 01/11/22 01/12/22 23:59 23:59 23:59 23:59 Intake Total 400 2660 1000 Output Total 1000 900 Balance 400 1660 100 Meds/Results Medications: Active Medications Generic Name Dose Route Start Last Admin Trade Name Freq PRN Reason Stop Dose Admin Acetaminophen 500 mg 01/10/22 15:21 01/12/22 08:16 Acetaminophen 500 Mg Tablet PO 500 mg Q6H PRN Administration Mild Pain (1-3) or Fever Dextrose 12.5 gm 01/10/22 18:25 Dextrose 50% 25 Gm/50 Ml Syringe IV PUSH PRN
[2022-01-12 10:01] VITALS: BP 141/69; PULSE 58; RESP 18; TEMP 36.3; O2SAT 99
--- NOTE | 2022-01-12 10:33 | PM.DS ---
DS: Admitting Diagnosis Discharge Date 01/12/2022 Admitting Diagnosis acute cholecystitis, choledocholithiasis DS: Discharge Diagnosis Discharge Diagnosis (1) Chronic cholecystitis due to cholelithiasis with choledocholithiasis: Code(s): K80.64 - Calculus of gallbladder and bile duct with chronic cholecystitis without obstruction Status: Chronic Assessment and Plan: status post cholecystectomy and ERCP with stone removal, doing well, continue routine postoperative care, follow-up with Dr. Taylor in 2 weeks (2) Type 2 diabetes mellitus with hyperglycemia: Code(s): E11.65 - Type 2 diabetes mellitus with hyperglycemia Status: Acute Assessment and Plan: stable, continue current management (3) Hypertension: Code(s): I10 - Essential (primary) hypertension Status: Acute Assessment and Plan: stable, continue current management (4) Afib: Code(s): I48.91 - Unspecified atrial fibrillation Status: Acute Assessment and Plan: stable, continue current management DS: Summary Hospital Course Reason for hospitalization: Acute cholecystitis, choledocholithiasis Hospital Course: The patient is a 71-year-old female with multiple medical issues presenting to the hospital complaining of upper abdominal pain. Workup, including imaging, was significant for acute cholecystitis, choledocholithiasis. The patient was admitted to the surgical service and started on IV antibiotics. Upon evaluation, decision was made for emergent operative intervention. The operating room and cholecystectomy with interoperative cholangiogram was done on 01/10, please see full operative report for details. During that procedure, it was noted the patient had choledocholithiasis. The patient was seen by Gastroenterology and ERCP was done on 01/11. Please see full procedure report for details of that procedure. Today, the patient is doing well and her labs are stable and unremarkable. She will be sent home with routine postoperative care and p.o. analgesia. She will follow up with Dr. Taylor in 2 weeks. Status at Discharge Functional status at discharge: independent ambulation Overall status at discharge: patient is progressing back to baseline Time Spent with Patient Time attestation: Total time spent providing and/or coordinating discharge services: Time spent: Less than 30 minutes Exam Const: General: cooperative, comfortable and no acute distress Resp: Auscultation: clear to auscultation bilaterally Cardio: Rate: regular rate Rhythm: regular rhythm GI: Inspection: normal to inspection, non-distended and incision GI Palp: Yes abdominal tenderness, Yes Soft to palpation, Yes Tenderness to palpation present (GI), No Guarding due to palpation present (GI) and No Rigid due to palpation DS: Data Data Completed and Pending Completed studies during hospitalization: Pending at discharge 01/10/22 12:57 Surgical [PTH] Routine Labs on day of discharge: Labs from last 24 hours 01/12/22 01/12/22 01/12/22 08:22 05:23 05:23 WBC 5.8 RBC 3.25 L Hgb 9.5 L Hct 30.1 L MCV 92.6 MCH 29.2 MCHC 31.6 L RDW 13.2 Plt Count 170 MPV 9.7 Sodium 139 Potassium 3.8 Chloride 105 Carbon Dioxide 26 Anion Gap 8 BUN 23 H D Creatinine 1.10 H Estim Creat Clear Calc 49 Estimated GFR 49 L Glucose 140 H POC Capillary Glucose 161 H Calcium 8.0 L Total Bilirubin 0.7 AST 29 ALT 68 H Alkaline Phosphatase 131 H Total Protein 6.0 L Albumin 3.2 L 01/11/22 01/11/22 01/11/22 20:48 16:46 15:08 WBC RBC Hgb Hct MCV MCH MCHC RDW Plt Count MPV Sodium Potassium Chloride Carbon Dioxide Anion Gap BUN Creatinine Estim Creat Clear Calc Estimated GFR Glucose POC Capillary Glucose 247 H 189 H 215 H Calcium Total Bilirubin AST ALT
[2022-01-12 12:13] LABS: Glucose Point of Care 243 mg/dl (65-105)
--- NOTE | 2022-01-12 12:17 | PC.NURSE ---
pt had already eaten lunch when blood sugar was checked, she declined getting insulin as she is awaiting ride home and result was post meal
--- NOTE | 2022-01-12 12:21 | PM.IMPN ---
Progress Note: A&P Assessment and Plan (1) Chronic cholecystitis: Code(s): K81.1 - Chronic cholecystitis Status: Acute Assessment and Plan: Postoperative day 2 status post laparoscopic cholecystectomy with IOC. Wound care, pain control deferred to surgery. Overall improvement in LFTs Follow-up with General surgery in 2 weeks (2) Choledocholithiasis: Code(s): K80.50 - Calculus of bile duct without cholangitis or cholecystitis without obstruction Status: Acute Assessment and Plan: ERCP completed on 01/11/2022 S/p sphincterotomy with removal of calculi debris from biliary/pancreatic duct Tolerating regular diet (3) ANAYA (acute kidney injury): Code(s): N17.9 - Acute kidney failure, unspecified Status: Acute Assessment and Plan: Nearly resolved. Creatinine 1.6 at presentation Improved following IV fluids. Creatinine 1.1 at time of discharge (4) Ventral hernia: Code(s): K43.9 - Ventral hernia without obstruction or gangrene Status: Chronic Assessment and Plan: Postoperative day2 status post hernia repair with mesh. Outpatient surgery follow-up (5) Type 2 diabetes mellitus with hyperglycemia: Code(s): E11.65 - Type 2 diabetes mellitus with hyperglycemia Status: Acute Assessment and Plan: A1c is 6.8. Blood sugars well controlled during admission. Continue home glimepiride (6) Hypertension: Code(s): I10 - Essential (primary) hypertension Status: Acute Assessment and Plan: Blood pressures Well controlled Continue home antihypertensives (7) Paroxysmal atrial fibrillation: Code(s): I48.0 - Paroxysmal atrial fibrillation Status: Chronic Assessment and Plan: No acute issues Continue metoprololAnd Eliquis Subjective Date/time seen: 01/12/22 12:21 Interval history: Date of service: 01/12/2022 Maegan Irving Is a 71-year-old female with a history of type 2 diabetes mellitus, paroxysmal atrial fibrillation on chronic anticoagulation, hypertension, hyperlipidemia, ZURDO who is seen in follow-up for acute cholecystitis and choledocholithiasis. The patient states she is feeling very well today. Her abdominal pain is improved and she is tolerating her diet. She plans to return home today where she lives with her daughter. She had a formed bowel movement today. She denies nausea or vomiting. She is getting around well. Review of Systems Review of Systems: All systems reviewed & are unremarkable except as noted in HPI and below Exam Narrative: General: Well-nourished, well-appearing 71-year-old female, sitting up at the bedside, comfortable, NARD Neuro: awake, alert and oriented x4, speech clear, no focal neuro deficits noted HEENMT: normocephalic, atraumatic, EOMI, sclerae anicteric, moist oral mucosa Respiratory: clear to auscultation bilaterally, nonlabored breathing Cardio: regular rate, regular rhythm with S1-S2 Abdomen: nondistended, normoactive bowel sounds, soft,Nontender to palpation Extremities: no edema, erythema, or tenderness to palpation Skin: no rashes or lesions, warm and dry Psych: appropriate mood and affect, judgment and insight intact Objective Data Vital Signs Vital Signs: Vital Signs - 24 hr 01/11/22 13:27 01/11/22 15:00 01/11/22 15:10 Temperature 97.2 F L Pulse Rate 52 L 74 63 Respiratory Rate 18 17 20 Blood Pressure 135/55 L 152/71 H 140/68 Pulse Oximetry 99 100 100 Oxygen Delivery Room Air Simple Face Mask Simple Face Mask Oxygen Flow Rate 6 3 01/11/22 15:20 01/11/22 15:30 01/11/22 15:40 Temperature Pulse Rate 54 L 62 49 L Respiratory Rate 17 25 H 14 Blood Pressure 139/60 131/59 L 141/56 H Pulse Oximetry 99 99 99 Oxygen Delivery Room Air Room Air Room Air Oxygen Flow Rate 01/11/22 15:50 01/11/22 16:00 01/11/22 16:22 Temperature 97.6 F Pulse Rate 49 L 52 L 56 L Respiratory R
== END 2022-01-12 12:52 | disposition home or self-care (01) | DRG 418 ==
LOC: ANHSURGERY 14:54 → ANH2MED 01-12 06:39
PROVIDERS: Internal Medicine Gastroenterology; Physician Assistant; Admitting Provider Surgery; PCP Family Medicine Adolescent Medicine; Visit Provider Surgery
PROC: 0FT44ZZ Resection of Gallbladder, Percutaneous Endoscopic Approach (ICD-10-PCS; CPT 47562; principal; 2022-01-10 12:00)
PROC: 0FT44ZZ Resection of Gallbladder, Percutaneous Endoscopic Approach (ICD-10-PCS; 2022-01-10 12:00)
PROC: (CPT 43260; principal; 2022-01-11 14:15)
DX: K80.64 Calculus of gallbladder and bile duct with chronic cholecystitis without obstruction (principal); N17.9 Acute kidney failure, unspecified; E11.65 Type 2 diabetes mellitus with hyperglycemia; K43.9 Ventral hernia without obstruction or gangrene; K42.9 Umbilical hernia without obstruction or gangrene; K57.10 Diverticulosis of small intestine without perforation or abscess without bleeding; I10 Essential (primary) hypertension; I48.0 Paroxysmal atrial fibrillation; G47.33 Obstructive sleep apnea (adult) (pediatric); E78.5 Hyperlipidemia, unspecified; E11.42 Type 2 diabetes mellitus with diabetic polyneuropathy; J45.909 Unspecified asthma, uncomplicated; E66.9 Obesity, unspecified; Z68.32 Body mass index [BMI] 32.0-32.9, adult; Z87.891 Personal history of nicotine dependence; Z79.01 Long term (current) use of anticoagulants
CPT/HCPCS: 36415; 74300; 74329; 80053; 82150; 82948; 83036; 83735; 85027; 86850; 86900; 86901; 88304; 93005; A9270; C1713; C1781; J0330; J0690; J1100; J1741; J1885; J2001; J2405; J2704; J2710; J3010; J3480; J7120; Q9966

== ENCOUNTER 2022-12-07 12:23 | Inpatient (IN) | payer MEDICARE, OTHER, SELFPAY ==
--- NOTE | ~2022-12-07 | XR_ITS ---
EXAMINATION: XR chest 1V DATE: 12/07/2022 13:52 INDICATION: Right upper quadrant abdominal pain. TECHNIQUE: A single frontal view of the chest was obtained. COMPARISON: Chest 2 views 11/02/2017 FINDINGS: There is mild atelectasis in left lower lung zone. No pleural effusion or pneumothorax. The heart size is normal. Surgical clips in the right upper quadrant are likely from cholecystectomy. IMPRESSION: 1. Mild atelectasis in left lower lung zone. Reviewed, dictated and finalized at location A.
--- NOTE | ~2022-12-07 | XR_ITS ---
EXAMINATION: XR ERCP DATE: 12/09/2022 13:22 INDICATION: Right upper quadrant abdominal pain. TECHNIQUE: 4 spot fluoroscopic images of the right upper quadrant were obtained during endoscopic ret rograde cholangiopancreatography (ERCP). Fluoroscopy exposure time was 86 seconds. COMPARISON: CT abdomen and pelvis 12/07/2022 FINDINGS: The endoscope is in the second portion of the duodenum. There is contrast opacification of the common duct, which is dilated. There are surgical clips from cholecystectomy. IMPRESSION: 1. Dilated common duct. Please refer to the ERCP procedure note for additional details. Reviewed, dictated and finalized at location E.
--- NOTE | ~2022-12-07 | CT_ITS ---
EXAMINATION: CT abdomen pelvis wo con DATE: 12/07/2022 13:50 INDICATION: Right upper quadrant abdominal pain. TECHNIQUE: Computed tomography (CT) of the abdomen and pelvis was performed without intravenous contr ast. Automated exposure control and iterative reconstruction technique were employed. The dose-length product was 1242.58 mGy-cm. COMPARISON: CT abdomen and pelvis 11/02/2017 FINDINGS: The visualized portions of the lung bases demonstrate mild atelectasis. No pleural effusion . The heart size is normal. No pericardial effusion. There are coronary artery calcifications. There is diffuse hepatic steatosis. There are changes of cholecystectomy. The common duct is normal in reina arun. There is a stone in the common duct. The spleen, pancreas, adrenal glands, and kidneys are sumaya l. There are no dilated loops of bowel. The appendix is normal. There are no pathologically enlarged lymph nodes. There is no free intraperitoneal fluid. There is mild chronic anterior wedging of multip le thoracic vertebral bodies. There is severe lower lumbar spondylosis. IMPRESSION: 1. Choledocholithiasis. 2. Diffuse hepatic steatosis. Reviewed, dictated and finalized at location A.
[2022-12-07 12:25] VITALS: BP 140/50; PULSE 76; RESP 20; TEMP 36.1; O2SAT 99
[2022-12-07 12:40] LABS: Basophils Absolute Auto 0.1 K/mm3 (0.0-0.1); Basophils Percent Auto 0.5 % (0.2-1.2); Eosinophils Percent Auto 0.4 % (0-4.4); Hematocrit 37.1 % (37.0-47.0); Hemoglobin 12.4 g/dL (12.0-15.0); Immature Granulocyte Absolute 0.04 K/mm3 (0.00-0.031); Immature Granulocyte Percent A 0.4 % (0-0.5); Lymphocytes Absolute Auto 0.78 K/mm3 (0.9-3.2); Lymphocytes Percent Auto 7.4 % (18.3-44.2); Mean Corpuscular HGB Conc 33.4 g/dl (32-36); Mean Corpuscular Hemoglobin 29.3 pg (26-34); Mean Corpuscular Volume 87.7 fl (80-100); Mean Platelet Volume 9.8 fl (7.4-10.4); Monocytes Absolute Auto 0.5 K/mm3 (0.1-0.6); Neutrophils Absolute Auto 9.1 K/mm3 (1.3-6.7); Neutrophils Percent Auto 86.3 % (45.5-73.1); Platelet Count Result 203 k/mm3 (150-375); Red Blood Count 4.23 M/mm3 (4.2-5.4); Red Cell Distribution Width 13.2 % (11.5-14.5); White Blood Count 10.5 K/mm3 (4.5-10.0)
[2022-12-07 12:52] LABS: Alanine Aminotransferase 419 U/L (6-35); Albumin Level 4.3 g/dL (3.5-5.1); Alkaline Phosphatase 222 U/L (38-126); Anion Gap 12 mmol/L (8-16); Aspartate Amino Transferase 223 U/L (14-36); Bilirubin,Total 4.6 mg/dL (0.2-1.3); Blood Urea Nitrogen 41 mg/dL (7-17); Calcium 9.1 mg/dL (8.4-10.2); Carbon Dioxide 26 mmol/L (22-30); Chloride 92 mmol/L (98-107); Estimated CRCL calculation 21 ml/min; Estimated Glomerular Filt Rate 18; Glucose 432 mg/dL (65-110); Lipase 84 U/L (23-300); Potassium 3.5 mmol/L (3.4-5.0); Sodium 130 mmol/L (137-145)
[2022-12-07 13:05] LABS: Appearance Urine Turbid (Clear); Bacteria Urine 4+ /hpf; Bilirubin Urine 2+ (Negative); Blood Urine Negative (Negative); Color Urine Dark Yellow (Yellow); Glucose Urine UA 1+ mg/dL (Negative); Ketones Urine Trace mg/dL (Negative); Leukocyte Esterase Ur 3+ LEU/UL (Negative); Nitrate Urine Positive (Negative); Protein Urine 1+ mg/dL (Negative); RBC Urine 0-2 /hpf (0-2); Specific Grav Ur 1.015 (1.001-1.035); Squamous Epithelial Cell Urine Many /hpf (Few); WBC Urine >100 /hpf; pH Urine 5.5 (5.0-9.0)
[2022-12-07 13:08] LABS: Add Urine Microscopic? YES
--- NOTE | 2022-12-07 13:29 | ECG_ITS ---
Measurements Intervals [place] Rate: 73 P: 67 [place]: 153 QRS: -9 QRSD: 97 T: 0 QT: 421 QTc: 464 Interpretive Statements SINUS RHYTHM VOLTAGE CRITERIA FOR LVH BORDERLINE T WAVE ABNORMALITY- INFERIOR LEADS BASELINE ARTIFACT- I, II, III, AVR, AVL, AVF BORDERLINE ECG COMPARED TO ECG 01/08/2022 13:54:54 NO SIGNIFICANT CHANGES Electronically Signed On 12-09-2022 16:51:18 CDT by Wan Pedraza D.O.
[2022-12-07] MEDS: ONDANSETRON INJ 4 MG/2 ML VIAL IV PUSH (13:53)
[2022-12-07] MEDS: hydrOXYzine HCL 25 MG TABLET PO ×2 (13:53→23:48)
[2022-12-07] MEDS: SODIUM CHLORIDE 0.9% IV 1,000 ML 999 ML IV CONT (13:54)
[2022-12-07 14:12] VITALS: BP 120/80; PULSE 69; RESP 20; TEMP 36.1; O2SAT 100
--- NOTE | 2022-12-07 14:17 | ED.ABDPAIN ---
HPI - Abdominal Pain General Chief Complaint: Abdominal Pain <Debbie Kim PA-C - Last Filed: 12/07/22 15:47> Stated Complaint: abd pain, n/v <Debbie Kim PA-C - Last Filed: 12/07/22 15:47> Time Seen by Provider: 12/07/22 12:47 <Debbie Kim PA-C - Last Filed: 12/07/22 15:47> History of Present Illness HPI narrative: 72-year-old female with a history of diastolic dysfunction, type 2 diabetes, hyperlipidemia, hypertension, paroxysmal A-fib, ZURDO, choledocholithiasis in 01/21 and s/p cholecystectomy reports for evaluation of right upper quadrant pain, generalized pruritus, nausea and multiple episodes of emesis, dark urine x3 to 4 days. Patient states the abdominal pain is in the right upper quadrant and radiates to the left shoulder and anterior chest wall. She reports the symptoms feel exactly like they did when she had choledocholithiasis here in 01/21. On admission, she had her gallbladder removed by Dr. Maldonado and had a ERCP performed by Dr. Hagen with successful stone removal. She denies shortness of breath, cough or congestion, back pain, dysuria or hematuria, fever. <Debbie Kim PA-C - Last Filed: 12/07/22 15:47> Related Data Home Medications: Home Medications Medication Instructions Recorded Confirmed apixaban 5 mg tablet (Eliquis) 5 mg PO BID 09/17/21 12/07/22 simvastatin 5 mg tablet 5 mg PO EVERY OTHER DAY 09/17/21 12/07/22 cetirizine 10 mg tablet (Zyrtec) 10 mg PO DAILY 01/08/22 12/07/22 ibuprofen 400 mg tablet 400 mg PO PRN PRN Pain 01/08/22 12/07/22 potassium chloride 10 mEq 10 meq PO DAILY 01/08/22 12/07/22 tablet,extended release Tylenol 325 mg PO Q4H PRN Pain, Moderate 12/07/22 12/07/22 glimepiride 2 mg tablet 2 mg PO DAILY 12/07/22 12/07/22 metoprolol succinate 50 mg 50 mg PO DAILY 12/07/22 12/07/22 tablet,extended release 24 hr triamcinolone acetonide 0.1 % 1 applic topical BID PRN Itching 12/07/22 12/07/22 topical cream <Debbie Kim PA-C - Last Filed: 12/07/22 15:47> Allergies/Adverse Reactions: Allergies Allergy/AdvReac Type Severity Reaction Status Date / Time quinapril Allergy Severe Hives Verified 12/07/22 16:38 lisinopril Allergy Intermediate Hives Verified 12/07/22 13:03 codeine Allergy Mild Vomiting Verified 12/07/22 13:03 Penicillins Allergy Mild Rash Verified 12/07/22 13:03 hydrocodone AdvReac Mild N&V Verified 12/07/22 13:03 metformin AdvReac Mild diarrhea Verified 12/07/22 13:03 tramadol Allergy Mild Nausea Uncoded 12/07/22 13:03 <Debbie Kim PA-C - Last Filed: 12/07/22 15:47> Review of Systems Review of Systems: CONSTITUTIONAL: Denies fever, chills EYES: Denies visual changes, redness, or discharge. ENT: Denies rhinorrhea, congestion, sore throat, or otalgia. CARDIOVASCULAR: See HPI RESPIRATORY: Denies cough or dyspnea. GASTROINTESTINAL: See HPI GENITOURINARY: See HPI SKIN: Denies rash or itching. MUSCULOSKELETAL: Denies back pain, joint pain, or myalgia. NEUROLOGIC: Denies headache, numbness, dizziness, or weakness. PSYCHIATRIC: Denies anxiety or depression. <Debbie Kim PA-C - Last Filed: 12/07/22 15:47> FOR[facility]LY [facility], [facility] Past Medical History Medical History: Medical History (Updated 12/07/22 @ 23:27 by Char Miller NP) Asthma Diabetic polyneuropathy DM2 (diabetes mellitus, type 2) Gallstones Hyperlipidemia Obstructive sleep apnea Not currently using CPAP. Paroxysmal atrial fibrillation Status post cardiac ablation. <Debbie Kim PA-C - Last Filed: 12/07/22 15:47> Surgical History Surgical History: Surgical History (Updated 12/07/22 @ 23:23 by Char Miller NP) History of bunionectomy History of cardiac radiofrequency ablation (2015) History of colonoscopy History of laparoscopic cholecystectomy (01/10/22) With intraoperative cholangiogram. History of surgical removal of ganglion cyst Right 1st toe, scalp. History of tonsillectomy History of ventral hernia repai
[2022-12-07] MEDS: levoFLOXacin 750 MG/D5W 150 ML 750 MG/150 ML BAG 100 MG IVPB (14:24)
[2022-12-07 14:46] LABS: Troponin I < 0.012 ng/mL (0.000-0.034)
[2022-12-07] MEDS: diphenhydrAMINE HCl INJ 50 MG/ML VIAL 12.5 MG IV PUSH (15:04)
[2022-12-07 15:56] LABS: Glucose Point of Care 367 mg/dl (65-105)
[2022-12-07 16:24] VITALS: BP 130/61; PULSE 75; RESP 16; TEMP 36.6; O2SAT 100
--- NOTE | 2022-12-07 16:52 | ADMGEN ---
This patient, Maegan Irving, was admitted to Medical Room 342-01. Patient/family oriented to hospital policies and general routines including ID bracelet, bed and alarms, visiting hours, pain management, procedures, bathroom and other care routines, personal items, smoking policy, room service/diet, and visiting hours. Information on how to activate the Rapid Response Team has been discussed. Patient/Family are encouraged to report perceived risks to care and to ask questions if they do not understand what they are told or what they should do.
[2022-12-07] MEDS: SODIUM CHLORIDE 0.9% IV 1,000 ML 125 ML IV CONT (17:07)
[2022-12-07 17:15] LABS: Glucose Point of Care 326 mg/dl (65-105)
--- NOTE | 2022-12-07 20:14 | PM.IMHP ---
H&P: HPI History of Present Illness Date/Time: 12/07/22 20:14 Chief Complaint: Abdominal pain Narrative: This is a 72-year-old female patient who had a the prescribed PICC cholecystectomy December of last year. She also had a ERCP due to a common bile duct stone. The patient had been doing well until the last 3 4 days. The patient had abdominal pain in the right upper quadrant that radiated to left shoulder anterior chest. The patient stated this felt exactly the same as it did 1 year ago. Patient denies any fever chills. Her white count is 10.5. Neutrophil percentage 86.3. Sodium 130. Chloride 92. BUN 41 creatinine 2.6. Last creatinine was 1.10 on 01/12/2022. The patient stated she drink plenty of fluids yesterday but the day before she vomited several times. The patient's urine came back positive for UTI today. ER provider discussed the case with Dr. Escamilla who agrees for admission antibiotics and holding apixaban for upcoming ERCP. The patient was started on Levaquin for UTI and choledocholithiasis. The patient was given IV fluids, Atarax for itching, Zofran, Levaquin and Benadryl. The patient's blood sugars have been in the 300s. Total bilirubin is 4.6. AST is 223 ALT is 419 and alkaline phosphatase 222. Troponin was also checked which was negative. The patient is being admitted to observation status on the date of service of 12/07/2022 Review of Systems Review of Systems: All systems reviewed & are unremarkable except as noted in HPI and below Constitutional: Constitutional: Reports as per HPI and Reports no additional constitutional complaints Eyes: Eyes: Reports as per HPI and Reports no additional eye complaints ENT: Reports system reviewed and no additional complaints, except as documented and Reports Normal hearing present Cardiovascular: Cardiovascular: Reports no additional cardiovascular complaints Respiratory: Respiratory: Reports no additional respiratory complaints and Reports no additional respiratory complaints Gastrointestinal: Gastrointestinal: Reports as per HPI and Reports no additional gastrointestinal complaints Musculoskeletal: Musculoskeletal: Reports no additional musculoskeletal complaints Integumentary/Breasts: Skin/Breast: Reports system reviewed and no additional complaints, except as docu and Reports as per HPI Neurologic: Reports system reviewed and no additional complaints, except as documented, Reports as per HPI and Reports Normal hearing present Psychiatric: Psychiatric: Reports no additional psychiatric complaints and Reports as per HPI Endocrine: Endocrine: Reports no additional endocrine complaints Hematologic/Lymphatic: Hematologic/Lymphatic: Reports no additional hematologic/lymphatic complaints Allergic/Immunologic: Allergic/Immunologic: Reports no additional allergic/immunologic complaints [facility] Past Medical History Medical History (Updated 12/07/22 @ 23:27 by Char Miller NP) Asthma Diabetic polyneuropathy DM2 (diabetes mellitus, type 2) Gallstones Hyperlipidemia Obstructive sleep apnea Not currently using CPAP. Paroxysmal atrial fibrillation Status post cardiac ablation. Surgical History Surgical History (Updated 12/07/22 @ 23:23 by Char Miller NP) History of bunionectomy History of cardiac radiofrequency ablation (2015) History of colonoscopy History of laparoscopic cholecystectomy (01/10/22) With intraoperative cholangiogram. History of surgical removal of ganglion cyst Right 1st toe, scalp. History of tonsillectomy History of ventral hernia repair (01/10/22) Done at the time of laparoscopic cholecystectomy. Family History Family History Father Cerebrovascular accident Diabetes mellitus Heart disease Laryngeal cancer Mother Glioblastoma Sibling Diabetes mellitus CHF (congestive heart failure) Social History Social History (Updated 12/07/22 @ 23
[2022-12-07 20:46] VITALS: BMI 33.3
[2022-12-07 20:47] VITALS: BP 130/59; PULSE 65; RESP 16; TEMP 36.9; O2SAT 99
[2022-12-07] MEDS: diphenhydrAMINE HCl INJ 50 MG/ML VIAL 25 MG IV PUSH (20:47)
[2022-12-07 21:01] LABS: Glucose Point of Care 327 mg/dl (65-105)
[2022-12-08] MEDS: SODIUM CHLORIDE 0.9% IV 1,000 ML 125 ML IV CONT ×2 (01:18→08:50)
[2022-12-08 05:40] LABS: Basophils Percent Auto 0.6 % (0.2-1.2); Eosinophils Absolute Auto 0.1 K/mm3 (0-0.3); Eosinophils Percent Auto 1.4 % (0-4.4); Hematocrit 31.8 % (37.0-47.0); Hemoglobin 10.3 g/dL (12.0-15.0); Immature Granulocyte Absolute 0.03 K/mm3 (0.00-0.031); Immature Granulocyte Percent A 0.6 % (0-0.5); Lymphocytes Absolute Auto 0.78 K/mm3 (0.9-3.2); Lymphocytes Percent Auto 15.7 % (18.3-44.2); Mean Corpuscular HGB Conc 32.4 g/dl (32-36); Mean Corpuscular Hemoglobin 28.9 pg (26-34); Mean Corpuscular Volume 89.1 fl (80-100); Mean Platelet Volume 9.6 fl (7.4-10.4); Monocytes Absolute Auto 0.5 K/mm3 (0.1-0.6); Monocytes Percent Auto 9.3 % (2.6-8.5); Neutrophils Absolute Auto 3.6 K/mm3 (1.3-6.7); Neutrophils Percent Auto 72.4 % (45.5-73.1); Platelet Count Result 142 k/mm3 (150-375); Red Blood Count 3.57 M/mm3 (4.2-5.4)
[2022-12-08 05:46] VITALS: BP 141/56; PULSE 81; RESP 16; TEMP 36.8; O2SAT 98
[2022-12-08 05:58] LABS: Alanine Aminotransferase 245 U/L (6-35); Albumin Level 3.1 g/dL (3.5-5.1); Alkaline Phosphatase 146 U/L (38-126); Anion Gap 2 mmol/L (8-16); Aspartate Amino Transferase 99 U/L (14-36); Bilirubin,Total 1.4 mg/dL (0.2-1.3); Blood Urea Nitrogen 40 mg/dL (7-17); Calcium 8.2 mg/dL (8.4-10.2); Carbon Dioxide 29 mmol/L (22-30); Chloride 102 mmol/L (98-107); Estimated CRCL calculation 22 ml/min; Estimated Glomerular Filt Rate 19; Glucose 237 mg/dL (65-110); Lipase 52 U/L (23-300); Magnesium 1.8 mg/dL (1.6-2.3); Potassium 3.4 mmol/L (3.4-5.0); Sodium 133 mmol/L (137-145)
[2022-12-08 06:01] LABS: Lactic Acid Reflex 0.9 mmol/L (0.7-2.0)
[2022-12-08 08:14] LABS: Glucose Point of Care 254 mg/dl (65-105)
[2022-12-08 08:32] LABS: Hemoglobin A1C 9.8 % (<5.7)
[2022-12-08 08:50] VITALS: BP 130/54; PULSE 81
[2022-12-08] MEDS: metroNIDAZOLE 500 MG/ISO 100ML 500 MG/100 ML BAG 100 MG IVPB ×3 (08:50→22:32)
[2022-12-08] MEDS: INSULIN ASPART (*BKC) 100 UNITS/ML SUB-Q ×4 (08:52→20:31)
[2022-12-08] MEDS: POTASSIUM CHLORIDE 10 MEQ ER TABLET PO (08:53)
[2022-12-08 08:55] VITALS: PULSE 78
[2022-12-08] MEDS: METOPROLOL SUCCINATE EXT REL 50 MG TABCR PO (08:55)
--- NOTE | 2022-12-08 10:39 | WPDGICN ---
Assessment and Plan Assessment and plan (1) Choledocholithiasis: Code(s): K80.50 - Calculus of bile duct without cholangitis or cholecystitis without obstruction Status: Acute Assessment and Plan: Patient CT scan imaging suggest common bile duct gallstones. This appears to correlate with elevated LFTs. Liver function has improved with overnight observation. Plan is for follow-up ERCP in clearance of the common bile duct. This will be deferred to allow clearance of anticoagulation prior to proceeding. Anticipate ERCP on Friday. Continue to monitor LFTs daily. (2) UTI (urinary tract infection): Code(s): N39.0 - Urinary tract infection, site not specified Status: Acute Assessment and Plan: Because of urinary tract infection as well as concern over common bile duct gallstone patient will be covered with Levaquin. (3) DM2 (diabetes mellitus, type 2): Code(s): E11.9 - Type 2 diabetes mellitus without complications Status: Acute (4) prison (current) use of anticoagulants: Code(s): Z79.01 - terminal gauger (current) use of anticoagulants Status: Acute Assessment and Plan: Anticoagulation with Eliquis will need to be held in anticipated addition of ERCP early this next week. (5) Paroxysmal atrial fibrillation: Code(s): I48.0 - Paroxysmal atrial fibrillation Status: Chronic GI Consult Note Consult date/time: 12/08/22 10:39 Reason for consult: Choledocholithiasis. HPI: Maegan Irving is a 72 year old female I am seeing at the request of the emergency room. Patient has a history of cholecystectomy 1 year ago. At that time had common bile duct gallstone requiring ERCP and common bile duct stone extraction. Patient did well until this last week when she began to develop vague abdominal pain she also noted pain radiating to her left shoulder similar to discomfort she had 1 year ago. Pain has persisted particularly with eating. She began to have itching and for this reason present to the emergency room yesterday. Patient on imaging studies reveals evidence for retained common bile duct gallstone by CT scan. Patient also noted to have urinary tract infection. Patient is on Eliquis for atrial fibrillation and this is being held in anticipation of possible repeat ERCP. Review of Systems Review of Systems: review of systems noncontributory. [facility] Past Medical History Medical History (Updated 12/07/22 @ 23:27 by Char Miller NP) Asthma Diabetic polyneuropathy DM2 (diabetes mellitus, type 2) Gallstones Hyperlipidemia Obstructive sleep apnea Not currently using CPAP. Paroxysmal atrial fibrillation Status post cardiac ablation. Surgical History Surgical History (Updated 12/07/22 @ 23:23 by Char Miller NP) History of bunionectomy History of cardiac radiofrequency ablation (2015) History of colonoscopy History of laparoscopic cholecystectomy (01/10/22) With intraoperative cholangiogram. History of surgical removal of ganglion cyst Right 1st toe, scalp. History of tonsillectomy History of ventral hernia repair (01/10/22) Done at the time of laparoscopic cholecystectomy. Family History Family History Father Cerebrovascular accident Diabetes mellitus Heart disease Laryngeal cancer Mother Glioblastoma Sibling Diabetes mellitus CHF (congestive heart failure) Social History Social History (Updated 12/07/22 @ 23:23 by Char Miller NP) Social History: The patient has 2 children a boy and a girl. She is and lives with her daughter. 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 Code status: Full code. Smoking packs per day: 0.25 Smoking cigarett
[2022-12-08 12:16] LABS: Glucose Point of Care 307 mg/dl (65-105)
--- NOTE | 2022-12-08 13:56 | PM.IMPN ---
Progress Note: A&P Assessment and Plan (1) Choledocholithiasis: Code(s): K80.50 - Calculus of bile duct without cholangitis or cholecystitis without obstruction Status: Acute Assessment and Plan: Patient s/p Cholecystectomy in December 2021. Intraoperative cholangiogram showed Choledocholithiasis. She underwent an ERCP a few days later with stone removal and sphincterotomy. Patient with abdominal pain. CT the abdomen pelvis shows choledocholithiasis and diffuse hepatic steatosis. This corresponds with her elevated liver enzymes and hyperbilirubinemia. GI has been consulted. Her apixaban has been placed on hold for possible ERCP. Liver enzymes and bili tending down. Lipase normal. Plan for ERCP tomorrow. (2) ANAYA (acute kidney injury): Code(s): N17.9 - Acute kidney failure, unspecified Status: Acute Assessment and Plan: Cr normal last year. Cr 2.6 on admission,. She is on HTZ and losartan which were held. Normal kidneys by CT. Started on IV fluids. Cr about the same on recheck. No urinary symptoms. Continue to monitor. (3) UTI (urinary tract infection): Code(s): N39.0 - Urinary tract infection, site not specified Status: Acute Assessment and Plan: UA noted. Possible UTI. Started on Levaquin. Follow up on Blood and urine culture (4) Type 2 diabetes mellitus with hyperglycemia: Code(s): E11.65 - Type 2 diabetes mellitus with hyperglycemia Status: Acute Assessment and Plan: A1c 9.8. The patient's blood glucose was reviewed on 12/08 Glucose poorly controlled. Continue AccuCheks covering with sliding scale. Hypoglycemia protocol available as needed. Lantus x1. Other meds on hold. Continue diabetic diet (5) Hyperlipidemia: Code(s): E78.5 - Hyperlipidemia, unspecified Status: Acute Assessment and Plan: Hold simvastatin due to elevated liver enzymes. (6) Paroxysmal atrial fibrillation: Code(s): I48.0 - Paroxysmal atrial fibrillation Status: Chronic Assessment and Plan: Apixaban is on hold at this time due to possible ERCP. Continue with metoprolol (7) [facility] (current) use of anticoagulants: Code(s): Z79.01 - adjunct faculty for medical terminology (current) use of anticoagulants Status: Acute Assessment and Plan: Apixaban is on hold at this time due to possibility of ERCP Subjective Date/time seen: 12/08/22 13:56 Interval history: 72yo female with DM, pAFib on anticoagulation and ZURDO here for abdominal pain. Slept poorly due to pruritus. Pruritus is better. No further abd pain. Nausea this morning but no vomiting. No Cp or SOB. No dysuria or hematuria Exam Narrative: AF 98.2 130/54 78 16 98% ra Gen - NARD sitting at the side of the bed Chest - CTA bilaterally, nml RR CV - RRR S1/S2 Abd - Soft, NT/ND, Positive BS Ext - No pitting pedal edema Psych - Nml mood and affect Skin - Warm and dry Objective Data Vital Signs Vital Signs: Vital Signs - 24 hr 12/07/22 14:12 12/07/22 16:24 12/07/22 20:47 Temperature 97 F L 97.8 F 98.5 F Pulse Rate 69 75 65 Respiratory Rate 20 16 16 Blood Pressure 120/80 130/61 130/59 L Pulse Oximetry 100 100 99 Oxygen Delivery 12/07/22 20:00 12/08/22 05:46 12/08/22 08:55 Temperature 98.2 F Pulse Rate 81 78 Respiratory Rate 16 Blood Pressure 141/56 H Pulse Oximetry 98 Oxygen Delivery Room Air 12/08/22 08:50 12/08/22 08:50 Temperature Pulse Rate 81 Respiratory Rate Blood Pressure 130/54 L Pulse Oximetry Oxygen Delivery Room Air Intake/Output Intake/Output: Intake & Output 12/05/22 12/06/22 12/07/22 12/08/22 23:59 23:59 23:59 23:59 Intake Total 1610 2890 Output Total 350 1200 Balance 1260 1690 Meds/Results Medications: Active Medications Generic Name Dose Route Start Last Admin Trade Name Freq PRN Reason Stop Dose Admin Cholestyramine Resin 4 gm 12/08/22 18:00 Cholestyramine Lig
[2022-12-08 14:00] VITALS: BP 146/58; PULSE 58; RESP 16; TEMP 36.7; O2SAT 100
[2022-12-08 16:59] LABS: Glucose Point of Care 256 mg/dl (65-105)
[2022-12-08] MEDS: INSULIN GLARGINE (*BKC) 100 UNITS/ML 10 UNITS SUB-Q (17:03)
[2022-12-08] MEDS: CHOLESTYRAMINE LIGHT 4 GM POWD.PACK PO (17:04)
[2022-12-08 20:25] VITALS: BP 147/62; PULSE 66; RESP 16; TEMP 36.9; O2SAT 100
[2022-12-08 22:07] LABS: Glucose Point of Care 232 mg/dl (65-105)
[2022-12-09] VITALS (11 sets, daily range): BP systolic 98–175; BP diastolic 42–81; PULSE 52–81; RESP 16–20; TEMP 36.1–36.6; O2SAT 98–100
[2022-12-09] MEDS: hydrOXYzine HCL 25 MG TABLET PO ×2 (00:45→05:44)
[2022-12-09] MEDS: metroNIDAZOLE 500 MG/ISO 100ML 500 MG/100 ML BAG 100 MG IVPB ×3 (05:43→20:46)
[2022-12-09 05:51] LABS: Alanine Aminotransferase 171 U/L (6-35); Albumin Level 3.2 g/dL (3.5-5.1); Alkaline Phosphatase 137 U/L (38-126); Anion Gap 7 mmol/L (8-16); Aspartate Amino Transferase 51 U/L (14-36); Bilirubin,Total 0.8 mg/dL (0.2-1.3); Blood Urea Nitrogen 31 mg/dL (7-17); Calcium 8.6 mg/dL (8.4-10.2); Carbon Dioxide 25 mmol/L (22-30); Chloride 106 mmol/L (98-107); Estimated CRCL calculation 29 ml/min; Estimated Glomerular Filt Rate 26; Glucose 177 mg/dL (65-110); Lipase 47 U/L (23-300); Magnesium 1.9 mg/dL (1.6-2.3); Potassium 3.6 mmol/L (3.4-5.0); Sodium 138 mmol/L (137-145)
[2022-12-09 05:58] LABS: Basophils Percent Auto 0.8 % (0.2-1.2); Eosinophils Absolute Auto 0.1 K/mm3 (0-0.3); Eosinophils Percent Auto 2.8 % (0-4.4); Hematocrit 30.5 % (37.0-47.0); Hemoglobin 9.9 g/dL (12.0-15.0); Immature Granulocyte Absolute 0.02 K/mm3 (0.00-0.031); Immature Granulocyte Percent A 0.5 % (0-0.5); Lymphocytes Absolute Auto 0.94 K/mm3 (0.9-3.2); Lymphocytes Percent Auto 23.7 % (18.3-44.2); Mean Corpuscular HGB Conc 32.5 g/dl (32-36); Mean Corpuscular Hemoglobin 29.2 pg (26-34); Mean Platelet Volume 9.7 fl (7.4-10.4); Monocytes Absolute Auto 0.4 K/mm3 (0.1-0.6); Monocytes Percent Auto 8.8 % (2.6-8.5); Neutrophils Absolute Auto 2.5 K/mm3 (1.3-6.7); Neutrophils Percent Auto 63.4 % (45.5-73.1); Platelet Count Result 155 k/mm3 (150-375); Red Blood Count 3.39 M/mm3 (4.2-5.4); Red Cell Distribution Width 12.9 % (11.5-14.5)
[2022-12-09 08:15] LABS: Glucose Point of Care 193 mg/dl (65-105)
[2022-12-09] MEDS: levoFLOXacin 750 MG/D5W 150 ML 750 MG/150 ML BAG 100 MG IVPB (08:17)
--- NOTE | 2022-12-09 11:00 | PC.NURSE ---
Patient off of unit to GI lab
[2022-12-09 11:14] LABS: Glucose Point of Care 203 mg/dl (65-105)
[2022-12-09] MEDS: LACTATED RINGERS 1,000 ML 150 ML IV CONT (11:18)
--- NOTE | 2022-12-09 11:43 | WPDANESEPPF ---
Anes - Initial Pre Proc Eval Procedure: Operation Date: 12/09/22 14:00 Proposed Procedures p Endoscopic Retro Cholangiopancreatogram - David Hagen MD Date/Time: 12/09/22 11:43 Surgeon: Esteban Mckeon MD Pre Op Diagnosis: choledocholithiasis,david Patient Data Age: 72 Gender: F Height: 1.73 m Weight: 99.3 kg Last Vital Signs Temp 97.1 F L 12/09/22 11:15 Pulse 63 12/09/22 11:15 Resp 18 12/09/22 11:15 BP 175/67 H 12/09/22 11:15 Pulse Ox 100 12/09/22 11:15 O2 Del Method Room Air 12/09/22 11:15 Allergies Allergy/AdvReac Type Severity Reaction Status Date / Time quinapril Allergy Severe Hives Verified 12/07/22 16:38 lisinopril Allergy Intermediate Hives Verified 12/07/22 13:03 codeine Allergy Mild Vomiting Verified 12/07/22 13:03 Penicillins Allergy Mild Rash Verified 12/07/22 13:03 hydrocodone AdvReac Mild N&V Verified 12/07/22 13:03 metformin AdvReac Mild diarrhea Verified 12/07/22 13:03 tramadol Allergy Mild Nausea Uncoded 12/07/22 13:03 Home Medications Medication Instructions Recorded Confirmed Type apixaban 5 mg tablet (Eliquis) 5 mg PO BID 09/17/21 12/07/22 History simvastatin 5 mg tablet 5 mg PO EVERY OTHER DAY 09/17/21 12/07/22 History blood sugar diagnostic (OneTouch #100 ea 12/07/21 12/07/22 Rx Ultra Test strips) hydroxyzine HCl 25 mg tablet 25 mg PO TID PRN itching #60 tabs 12/26/21 12/07/22 Rx cetirizine 10 mg tablet (Zyrtec) 10 mg PO DAILY 01/08/22 12/07/22 History ibuprofen 400 mg tablet 400 mg PO PRN PRN Pain 01/08/22 12/07/22 History potassium chloride 10 mEq 10 meq PO DAILY 01/08/22 12/07/22 History tablet,extended release hydrochlorothiazide 25 mg tablet 25 mg PO DAILY #90 tabs 08/21/22 12/07/22 Rx losartan 100 mg tablet 100 mg PO DAILY #90 tabs 11/18/22 12/07/22 Rx Tylenol 325 mg PO Q4H PRN Pain, Moderate 12/07/22 12/07/22 History glimepiride 2 mg tablet 2 mg PO DAILY 12/07/22 12/07/22 History metoprolol succinate 50 mg 50 mg PO DAILY 12/07/22 12/07/22 History tablet,extended release 24 hr triamcinolone acetonide 0.1 % 1 applic topical BID PRN Itching 12/07/22 12/07/22 History topical cream Laboratory Tests 12/08/22 12/08/22 12/08/22 12:06 16:54 20:28 WBC RBC Hgb Hct MCV MCH MCHC RDW Plt Count MPV Immature Gran % (Auto) Neut % (Auto) Lymph % (Auto) Bradley % (Auto) Eos % (Auto) Baso % (Auto) Lymph # (Auto) Bradley # (Auto) Eos # (Auto) Baso # (Auto) Abs Immat Gran (auto) Absolute Neuts (auto) Absolute Nucleated RBC Nucleated RBC % Sodium Potassium Chloride Carbon Dioxide Anion Gap BUN Creatinine Estim Creat Clear Calc Estimated GFR Glucose POC Capillary Glucose 307 H mg/dl 256 H mg/dl 232 H mg/dl (65-105) (65-105) (65-105) Calcium Magnesium Total Bilirubin AST ALT Alkaline Phosphatase Total Protein Albumin Lipase 12/09/22 12/09/22 12/09/22 05:20 08:10 11:12 WBC 4.0 L K/mm3 (4.5-10.0) RBC 3.39 L M/mm3 (4.2-5.4) Hgb 9.9 L g/dL (12.0-15.0) Hct 30.5 L % (37.0-47.0) MCV 90.0 fl (80-100) MCH 29.2 pg (26-34) MCHC 32.5 g/dl (32-36) RDW 12.9 % (11.5-14.5) Plt Count 155 k/mm3 (150-375) MPV 9.7 fl (7.4-10.4) Immature Gran % (Auto) 0.5 % (0-0.5) Neut % (Auto) 63.4 % (45.5-73.1) Lymph % (Auto) 23.7 % (18.3-44.2) Bradley % (Auto) 8.8 H % (2.6-8.5) Eo
[2022-12-09 13:46] LABS: Glucose Point of Care 237 mg/dl (65-105)
--- NOTE | 2022-12-09 14:29 | PC.NURSE ---
Patient returned to unit from GI lab
--- NOTE | 2022-12-09 14:44 | PM.IMPN ---
Progress Note: A&P Assessment and Plan (1) Choledocholithiasis: Code(s): K80.50 - Calculus of bile duct without cholangitis or cholecystitis without obstruction Status: Acute Assessment and Plan: Patient s/p Cholecystectomy in December 2021. Intraoperative cholangiogram showed choledocholithiasis. She underwent an ERCP the next day with stone removal and sphincterotomy. Patient admitted with abdominal pain. CT the abdomen pelvis shows choledocholithiasis and diffuse hepatic steatosis. This corresponds with her elevated liver enzymes and hyperbilirubinemia. GI was consulted and she underwent ERCP today. There were multiple filling defects in the distal CBD consistent with stones. Sphincterotomy with stone extraction. Her apixaban has been placed on hold and can be resumed Friday. Liver enzymes and bili tending down. (2) ANAYA (acute kidney injury): Code(s): N17.9 - Acute kidney failure, unspecified Status: Acute Assessment and Plan: Cr normal last year. Cr 2.6 on admission,. She is on Ibuprofen, HCTZ and losartan which were held. Normal kidneys by CT. Started on IV fluids. Cr better today at 1.9. Contineu IV fluids. Continue to monitor. (3) UTI (urinary tract infection): Code(s): N39.0 - Urinary tract infection, site not specified Status: Acute Assessment and Plan: UA noted. UCx positive for Klebsiella 100K colonies. BCx NGTD. Continue Levaquin. (4) Type 2 diabetes mellitus with hyperglycemia: Code(s): E11.65 - Type 2 diabetes mellitus with hyperglycemia Status: Acute Assessment and Plan: A1c 9.8. The patient's blood glucose was reviewed on 12/09 Glucose better but still not at goal. Continue AccuCheks covering with sliding scale. Hypoglycemia protocol available as needed. Repeat Lantus tonight. Other meds on hold. Diabetic diet resumed (5) Hyperlipidemia: Code(s): E78.5 - Hyperlipidemia, unspecified Status: Acute Assessment and Plan: Hold simvastatin due to elevated liver enzymes. (6) Paroxysmal atrial fibrillation: Code(s): I48.0 - Paroxysmal atrial fibrillation Status: Chronic Assessment and Plan: Apixaban is on hold at this time post-ERCP. 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 Subjective Date/time seen: 12/09/22 14:44 Interval history: 72yo female with DM, pAFib on anticoagulation and ZURDO here for abdominal pain. Had nausea last night. Just back from ERCP. Feels better. Has not eaten yet. No CP or SOB. No further abd pain. Exam Narrative: AF 97.8 153/54 62 20 100% ra Gen - NARD Chest - CTA bilaterally, nml RR CV - RRR S1/S2 Abd - Soft, NT/ND, Positive BS Ext - trace pedal edema Psych - Nml mood and affect Skin - Warm and dry Objective Data Vital Signs Vital Signs: Vital Signs - 24 hr 12/08/22 20:25 12/08/22 20:00 12/09/22 05:26 Temperature 98.5 F 98 F Pulse Rate 66 81 Respiratory Rate 16 16 Blood Pressure 147/62 H 149/51 H Pulse Oximetry 100 98 Oxygen Delivery Room Air Oxygen Flow Rate 12/09/22 08:49 12/09/22 08:25 12/09/22 11:15 Temperature 97.1 F L Pulse Rate 63 Respiratory Rate 18 Blood Pressure 175/67 H Pulse Oximetry 98 100 Oxygen Delivery Room Air Room Air Room Air Oxygen Flow Rate 12/09/22 13:15 12/09/22 13:25 12/09/22 13:35 Temperature 97.8 F Pulse Rate 74 72 64 Respiratory Rate 16 18 18 Blood Pressure 153/79 H 142/50 H 98/81 L Pulse Oximetry 99 100 99 Oxygen Delivery Nasal Cannula Nasal Cannula Room Air Oxygen Flow Rate 6 3 12/09/22 13:45 12/09/22 13:55 12/09/22 14:05 Temperature Pulse Rate 62 60 62 Respiratory Rate 20 20 20 Blood Pressure 138/54 L 147/42 H 153/54 H Pulse Oximetry 99 100 100 O
[2022-12-09] MEDS: SODIUM CHLORIDE 0.9% IV 1,000 ML 70 ML IV CONT (15:09)
[2022-12-09 17:23] LABS: Glucose Point of Care 236 mg/dl (65-105)
[2022-12-09] MEDS: CHOLESTYRAMINE LIGHT 4 GM POWD.PACK PO (17:37)
[2022-12-09] MEDS: INSULIN ASPART (*BKC) 100 UNITS/ML SUB-Q ×3 (17:38→21:38)
[2022-12-09] MEDS: INSULIN GLARGINE (*BKC) 100 UNITS/ML 15 UNITS SUB-Q (20:49)
[2022-12-09 20:54] LABS: Glucose Point of Care 252 mg/dl (65-105)
[2022-12-10] MEDS: hydrOXYzine HCL 25 MG TABLET PO (01:32)
[2022-12-10 05:35] VITALS: BP 142/60; PULSE 64; RESP 15; TEMP 36.1; O2SAT 99
[2022-12-10] MEDS: SODIUM CHLORIDE 0.9% IV 1,000 ML 70 ML IV CONT (06:05)
[2022-12-10] MEDS: metroNIDAZOLE 500 MG/ISO 100ML 500 MG/100 ML BAG 100 MG IVPB (06:06)
[2022-12-10 06:24] LABS: Hematocrit 30.6 % (37.0-47.0); Hemoglobin 10.1 g/dL (12.0-15.0); Mean Corpuscular Hemoglobin 29.2 pg (26-34); Mean Corpuscular Volume 88.4 fl (80-100); Mean Platelet Volume 9.4 fl (7.4-10.4); Platelet Count Result 167 k/mm3 (150-375); Red Blood Count 3.46 M/mm3 (4.2-5.4); Red Cell Distribution Width 12.9 % (11.5-14.5); White Blood Count 4.7 K/mm3 (4.5-10.0)
[2022-12-10 06:42] LABS: Alanine Aminotransferase 117 U/L (6-35); Alkaline Phosphatase 119 U/L (38-126); Anion Gap 1 mmol/L (8-16); Aspartate Amino Transferase 32 U/L (14-36); Bilirubin,Total 0.6 mg/dL (0.2-1.3); Blood Urea Nitrogen 27 mg/dL (7-17); Calcium 8.3 mg/dL (8.4-10.2); Carbon Dioxide 26 mmol/L (22-30); Chloride 106 mmol/L (98-107); Estimated CRCL calculation 39 ml/min; Estimated Glomerular Filt Rate 37; Glucose 180 mg/dL (65-110); Potassium 3.5 mmol/L (3.4-5.0); Sodium 133 mmol/L (137-145)
--- NOTE | 2022-12-10 07:52 | WPDGIPROGNO ---
Progress Note: A&P Assessment and Plan (1) Chronic cholecystitis due to cholelithiasis with choledocholithiasis: Code(s): K80.64 - Calculus of gallbladder and bile duct with chronic cholecystitis without obstruction Status: Resolved Assessment and Plan: ERCP was done yesterday with successful removal of several stones and sludge from the distal common bile duct. From my perspective she could be discharged today. She tolerated regular (diabetic) diet last night . From my perspective she can be discharged today (2) Paroxysmal atrial fibrillation: Code(s): I48.0 - Paroxysmal atrial fibrillation Status: Chronic Assessment and Plan: she had been on apixaban prior to admission. 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 This also creates a less than straight line distal bile duct which may have contributed to the relative obstruction. Hopefully having extended the sphincterotomy will preclude further development of stones. Subjective Date/time seen: 12/10/22 07:52 She states that she slept well for the 1st time in several days. She is having no pain this morning. Tolerated her dinner last night. Hoping to be discharged today. Review of Systems Review of Systems: All systems reviewed & are unremarkable except as noted in HPI and below Exam Const: General: alert Orientation/consciousness: patient oriented x3 Resp: Auscultation: clear to auscultation bilaterally Cardio: Rhythm: regular rhythm GI: GI Palp: Yes Soft to palpation and No Tenderness to palpation present (GI) Neuro: General: patient oriented x3 Objective Data Vital Signs Vital Signs: Vital Signs - 24 hr 12/09/22 08:49 12/09/22 08:25 12/09/22 11:15 Temperature 36.2 C L Pulse Rate 63 Respiratory Rate 18 Blood Pressure 175/67 H Pulse Oximetry 98 100 Oxygen Delivery Room Air Room Air Room Air Oxygen Flow Rate 12/09/22 13:15 12/09/22 13:25 12/09/22 13:35 Temperature 36.6 C Pulse Rate 74 72 64 Respiratory Rate 16 18 18 Blood Pressure 153/79 H 142/50 H 98/81 L Pulse Oximetry 99 100 99 Oxygen Delivery Nasal Cannula Nasal Cannula Room Air Oxygen Flow Rate 6 3 12/09/22 13:45 12/09/22 13:55 12/09/22 14:05 Temperature Pulse Rate 62 60 62 Respiratory Rate 20 20 20 Blood Pressure 138/54 L 147/42 H 153/54 H Pulse Oximetry 99 100 100 Oxygen Delivery Room Air Room Air Room Air Oxygen Flow Rate 12/09/22 14:00 12/09/22 20:00 12/09/22 21:49 Temperature 36.1 C L 36.1 C L Pulse Rate 52 L 61 Respiratory Rate 18 16 Blood Pressure 150/53 H 160/63 H Pulse Oximetry 100 100 Oxygen Delivery Room Air Oxygen Flow Rate 12/10/22 05:35 Temperature 36.1 C L Pulse Rate 64 Respiratory Rate 15 Blood Pressure 142/60 H Pulse Oximetry 99 Oxygen Delivery Oxygen Flow Rate Intake/Output Intake/Output: Intake & Output 12/07/22 12/08/22 12/09/22 12/10/22 23:59 23:59 23:59 23:59 Intake Total 1610 4510 1660 1000 Output Total 350 1400 1300 500 Balance 1260 3110 360 500 Meds/Results Medications: Active Medications Generic Name Dose Route Start Last Admin Trade Name Freq PRN Reason Stop Dose Admin Cholestyramine Resin 4 gm 12/08/22 18:00 12/09/22 17:37 Cholestyramine Light 4 Gm Powd.Pack PO 4 gm BID@1000,1800 MARLON Administration Dextrose 12.5 gm 12/07/22 22:00 Dextrose 50% 25 Gm/50 Ml Syringe IV PUSH PRN PRN Hypoglycemia Protocol Glucagon 1 mg 12/07/22 22:00 Glucagon For Inj 1 Mg Vial IM PRN PRN Hypoglycemia Protocol Glucose 15 gm 12/07/22 22:00 Glucose Oral Gel 15 Gm Of Glucse In 37.5 Gm Tube PO PRN PRN Hypoglycemia Protocol Hydroxyzine HCl 25 mg 12/07/22 23:29 12/10/22 01:32 Hydroxyzine Hcl 25 Mg Tablet PO 25 mg TID PRN Administration itching Levofloxacin/Dext
[2022-12-10 08:30] VITALS: BP 148/59; PULSE 60
[2022-12-10 08:34] VITALS: PULSE 60
[2022-12-10] MEDS: POTASSIUM CHLORIDE 10 MEQ ER TABLET PO (08:34)
[2022-12-10] MEDS: METOPROLOL SUCCINATE EXT REL 50 MG TABCR PO (08:34)
[2022-12-10] MEDS: CHOLESTYRAMINE LIGHT 4 GM POWD.PACK PO (08:34)
[2022-12-10 08:51] LABS: Glucose Point of Care 184 mg/dl (65-105)
[2022-12-10 11:51] LABS: Glucose Point of Care 263 mg/dl (65-105)
[2022-12-10] MEDS: INSULIN ASPART (*BKC) 100 UNITS/ML SUB-Q (12:00)
--- NOTE | 2022-12-10 12:11 | PM.DS ---
DS: Admitting Diagnosis Discharge Date 12/10/22 Admitting Diagnosis Abdominal pain DS: Discharge Diagnosis Discharge Diagnosis (1) Choledocholithiasis: Code(s): K80.50 - Calculus of bile duct without cholangitis or cholecystitis without obstruction Status: Acute (2) ANAYA (acute kidney injury): Code(s): N17.9 - Acute kidney failure, unspecified Status: Acute (3) UTI (urinary tract infection): Code(s): N39.0 - Urinary tract infection, site not specified Status: Acute (4) Type 2 diabetes mellitus with hyperglycemia: Code(s): E11.65 - Type 2 diabetes mellitus with hyperglycemia Status: Acute (5) Hyperlipidemia: Code(s): E78.5 - Hyperlipidemia, unspecified Status: Acute (6) Paroxysmal atrial fibrillation: Code(s): I48.0 - Paroxysmal atrial fibrillation Status: Chronic (7) retirement (current) use of anticoagulants: 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 Please see H&P for details. Hospital Course: Patient s/p cholecystectomy in December 2021. Intraoperative cholangiogram showed choledocholithiasis. She underwent an ERCP the next day with stone removal and sphincterotomy.? Patient admitted with abdominal pain. CT the abdomen pelvis shows choledocholithiasis and diffuse hepatic steatosis.? This corresponds with her elevated liver enzymes and hyperbilirubinemia. GI was consulted and she underwent ERCP 12/09/22. There were multiple filling defects in the distal CBD consistent with stones. Sphincterotomy with stone extraction. 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 This also creates a less than straight line for the distal bile duct which may have contributed to the relative obstruction.? Hopefully having extended the sphincterotomy will preclude further development of stones. Her apixaban has been placed on hold and this can be resumed on12/11/22. Liver enzymes and bilirubin levels tending down.?Patient also had ANAYA (acute kidney injury). Cr was normal last year. Cr 2.6 on admission. She is on Ibuprofen, HCTZ and losartan which were held. Normal kidneys by CT. She was started on IV fluids. Cr better today at 1.4. [place] to be related to ATN and UTI. UA noted. BCx NGTD. She was started on Levaquin and Flagyl added given the choledocholithiasis. UCx positive for Klebsiella 100K colonies sensitive to Levaquin. ?A1c 9.8. The patient's blood glucose was moniotred with AccuCheks covering with sliding scale.? Hypoglycemia protocol was available as needed. She has hyperlipidemia. We held her simvastatin due to elevated liver enzymes. She had clinical improvement and feels '100% better'. She overall did well and was able to be discharged home on 12/10/2022. Status at Discharge Cognitive/behavioral status at discharge: Stable Time Spent with Patient Time attestation: Total time spent providing and/or coordinating discharge services: 32 minutes Time spent: Greater than 30 minutes Exam Narrative: AF 97.0 148/59 60 15 99% ra Gen - NARD Chest - CTA bilaterally, nml RR CV - RRR S1/S2 Abd - Soft, NT/ND, Positive BS Ext - trace pedal edema Psych - Nml mood and affect Skin - Warm and dry DS: Data Data Completed and Pending Labs on day of discharge: Labs from last 24 hours 12/10/22 12/10/22 12/10/22 11:48 08:48 06:05 WBC 4.7 RBC 3.46 L Hgb 10.1 L Hct 30.6 L MCV 88.4 MCH 29.2 MCHC 33.0 RDW 12.9 Plt Count 167 MPV 9.4 Sodium 133 L Potassium 3.5 Chloride 106 Carbon Dioxide 26 Anion Gap 1 L BUN 27 H Creatinine 1.40 H Estim Creat Clear Calc 39 Estimated GFR 37 L Glucose 180 H POC Capillary Glucose 263 H 184 H Calcium 8.3 L Total Bilirubin 0.6 AST 32
== END 2022-12-10 13:35 | disposition home or self-care (01) | DRG 445 ==
LOC: ANHED 14:22 → ANH3MED 15:33
PROVIDERS: Emergency Medicine; Internal Medicine Gastroenterology; Nurse Practitioner; Admitting Provider Internal Medicine; Emergency Provider Physician Assistant; PCP Family Medicine Adolescent Medicine; Visit Provider Internal Medicine
PROC: 0FC98ZZ Extirpation of Matter from Common Bile Duct, Via Natural or Artificial Opening Endoscopic (ICD-10-PCS; CPT 43260; principal; 2022-12-09 14:00)
DX: K80.50 Calculus of bile duct without cholangitis or cholecystitis without obstruction (principal); N17.9 Acute kidney failure, unspecified; N39.0 Urinary tract infection, site not specified; B96.1 Klebsiella pneumoniae [K. pneumoniae] as the cause of diseases classified elsewhere; K57.10 Diverticulosis of small intestine without perforation or abscess without bleeding; K76.0 Fatty (change of) liver, not elsewhere classified; E11.65 Type 2 diabetes mellitus with hyperglycemia; I48.0 Paroxysmal atrial fibrillation; G47.33 Obstructive sleep apnea (adult) (pediatric); E78.5 Hyperlipidemia, unspecified; I10 Essential (primary) hypertension; E11.42 Type 2 diabetes mellitus with diabetic polyneuropathy; Z90.49 Acquired absence of other specified parts of digestive tract; Z79.01 Long term (current) use of anticoagulants; Z87.891 Personal history of nicotine dependence
CPT/HCPCS: 36415; 71045; 74176; 74329; 80053; 81001; 82948; 83036; 83605; 83690; 83735; 84443; 84484; 85025; 85027; 87040; 87077; 87086; 87186; 93005; 96361; 96365; 96366; 96367; 96375; 96376; 99285; A9270; G0378; J1100; J1200; J1610; J1815; J1836; J1956; J2405; J2704; J7030; J7120; Q9966

== ENCOUNTER 2025-03-01 10:48 | Outpatient (CLI) | payer MEDICARE, OTHER, SELFPAY ==
--- NOTE | ~2025-03-01 | XR_ITS ---
EXAMINATION: XR knee RT 3V, 03/01/2025 11:15 CDT HISTORY: M17.0 - Bilateral primary osteoarthritis of knee COMPARISON: No comparisons available. Findings: No acute fracture or malalignment. Severe tricompartmental degenerative changes Soft tissues unremarkable. Impression: No acute fracture or malalignment. Reviewed, dictated and finalized at location P. Impression: No acute fracture or malalignment.
--- NOTE | ~2025-03-01 | XR_ITS ---
EXAMINATION: XR knee LT 3V, 03/01/2025 11:15 CDT HISTORY: M17.0 - Bilateral primary osteoarthritis of knee COMPARISON: No comparisons available. Findings: No acute fracture or malalignment. Severe tricompartmental degenerative changes Soft tissues unremarkable. Impression: No acute fracture or malalignment. Reviewed, dictated and finalized at location P. Impression: No acute fracture or malalignment.
[2025-03-01 11:24] LABS: Hematocrit 36.1 % (37.0-47.0); Hemoglobin 11.4 g/dL (12.0-15.0); Mean Corpuscular HGB Conc 31.6 g/dl (32-36); Mean Corpuscular Hemoglobin 29.4 pg (26-34); Mean Corpuscular Volume 93.0 fl (80-100); Platelet Count Result 188 k/mm3 (150-375); Red Blood Count 3.88 M/mm3 (4.2-5.4); White Blood Count 5.0 K/mm3 (4.5-10.0)
--- OUTSIDE RECORDS SUMMARY | 2025-03-01 11:37 | XMS_ITS | Clinical Summary ---
Author Organization [facility] Address [address] [place] [address] Care Team Providers Care Etl Software Engineer Name Role Phone Ajay Rose MD Primary Care Prov ider Allergies Active Allergy Reactions Criticality Noted Date Comments Codeine Nausea & Vomiting Low 09/17/2021 Hydrocodone Nausea & Vomiting Low 09/17/2021 Lisinopril Urticaria Medium 12/07/2019 Metformin Diarrhea Low 09/17/2021 Penicillins Urticaria,Rash Medium 12/07/2019 Quinapril Anaphylaxis High 09/17/2021 Medications cetirizine (ZyrTEC) 10 mg tablet TAKE 1 TABLET DAILY NEEDED. Active triamcinolone (KENALOG) 0.1 % creamIndication s:DAILY PRN as needed 8 Active apixaban (ELIQUIS) 5 mg tabletIndicatio ns:1/2 tab BID Take 1 tablet (5 mg total) by mouth 2 (two) times a day. 56 tablet 8 Active hydroCHLOROthia zide (HYDRODIURIL) 25 mg tablet Take 1 tablet (25 mg total) by mouth daily 9 Active losartan (COZAAR) 100 mg tablet Take 1 tablet (100 mg total) by mouth daily 9 Active metoprolol XL (TOPROL-XL) 50 mg extended release tablet Take 1 tablet by mouth once daily 90 tablet 3 0 Active glimepiride (AMARYL) 2 mg tablet Take 1 tablet (2 mg total) by mouth daily 2 Active SITagliptin phosphate (JANUVIA) 25 mg tabletIndicatio ns:type 2 diabetes mellitus Take 1 tablet (25 mg total) by mouth daily Active potassium chloride ER 10 mEq CR tablet Take 1 tablet by mouth once daily 90 tablet 1 5 Active rosuvastatin (CRESTOR) 10 mg tabletIndicatio ns:Hyperlipidem ia associated with type 2 diabetes mellitus (HCC) Take 1 tablet by mouth once daily 90 tablet 2 5 Active rosuvastatin (CRESTOR) 10 mg tabletIndicatio ns:Hyperlipidem ia associated with type 2 diabetes mellitus (HCC) Take 1 tablet by mouth once daily 90 tablet 2 4 02/02/20 25 Discontinued Active Problems Problem Noted Date Diagnosed Date Atypical chest pain 01/07/2025 Chronic anticoagulation 02/05/2022 Hyperlipidemia associated with type 2 diabetes m ellitus 02/05/2022 History of artificial joint 09/05/2016 BMI 35.0-35.9,adult 08/15/2016 ZURDO (obstructive sleep apnea) 10/09/2015 Diabetes mellitus 07/13/2015 Hypertension associated with diabetes 07/13/2015 Obesity 07/13/2015 Paroxysmal atrial fibrillation 06/20/2015 Overview (09/12/2017): Annotation: s/p ablation on 03/18/2016 Encounters Date Type Department Care Team Description 02/11/2025 7:36 AM CDT - 02/11/2025 11:59 PM CDT Hospital Encounter [facility] [address] [place] [address] Atypical chest pain Discharge Disposition: Discharge to home or self care 02/11/2025 Results Follow-Up [facility] [address] [place] [address] Jose Saavedra MD CTA Heart and Coronary Arteries W Morphology when Performed 02/09/2025 Telephone [facility] [address] [place] [address] Kira Genao RN 01/07/2025 10:30 AM CDT Office Visit [facility] [address] [place] [address] Jose Saavedra MD Paroxysmal atrial fibrillation (HCC) (Primary Dx); Hypertension associated with diabetes (HCC); Hyperlipidemia associated with type 2 diabetes mellitus (HCC); Chronic anticoagulation; ZURDO (obstructive sleep apnea); Atypical chest pain from Last 3 Months Surgical History Surgery Date Site/Laterality Comments TONSILLECTOMY TOE SURGERY Right ABLATION CHOLECYSTECTOMY Medical History Medical History Date Comments Encounter for other preproce dural examination Pre-op testing - (Added by T W Conv) Atypical chest pain Atrial fibrillation (HCC) Sleep apnea Motion sickness Hypertension Type 2 diabetes mellitus Family History Medical History Relation Name Comments Diabetes Brother Family history of diabetes mellitus - (Added by TW Conv) Hypertension Brother Family history of hypertension - (Added by TW Conv) Cancer Father Family history of cancer - (Added by TW Conv) Coronary artery disease Father Fami ly history of coronary artery disease - (Added by TW Conv) Diabetes Father Family history of diabetes mellitus - (Added by TW Conv) Heart failure Father Family history of heart failure - (Added by TW Conv) Hypertension Father Family history of hypertension - (Added by TW Conv) Stroke Father Family history of stroke - (Added by TW Conv) Cancer Mother Family history of cancer - (Added by TW Conv) Coronary artery disease Mother Fami ly history of coronary artery disease - (Added by TW Conv) Diabetes Mother Family history of diabetes mellitus - (Added by TW Conv) Heart failure Mother Family history of heart failure - (Added by TW Conv) Hypertension Mother Family history of hypertension - (Added by TW Conv) Stroke Mother Family history of stroke - (Added by TW Conv) Relation Name Status Comments Brother Father Mother Social History Tobacco Use Types Packs/Day Years Used Date Smoking Tobacco: Former Smokeless Tobacco: Never Tobacco Cessation:Counseling Given: Not Answered Alcohol Use Standard Drinks/Week Comments Never 0 (1 standard drink = 0.6 oz pur e alcohol) AUDIT-C Answer Date Recorded Q1: How often do you have a drink containing alcohol? Never 02/25/2025 Q2: How many drinks containi ng alcohol do you have on a typical day when you are drinking? Patient does not drink Q3: How often do you have si x or more drinks on one occasion? Never 02/25/2025 Comments Unknown Sex and Gender Information Value Date Recorded Sex Assigned at Not on file Legal Sex Female 4:08 AM SUPERVISOR COOK ROOM Gender Identity Female 12/23/2022 1:57 PM CDT Sexual Orientation Straight 12/23/2022 1: 57 PM CDT Obstetrics History Last Filed Vital Signs Vital Sign Reading Time Taken Comments Blood Pressure 141/65 02/11/2025 8:20 AM CDT Pulse 65 02/11/2025 8:20 AM CDT Temperature 36.9 C (98.4 F) 02/05/2022 9:34 AM CDT Respiratory Rate 13 11/20/2022 10:51 AM CDT Oxygen Saturation 98% 01/07/2025 10:22 AM CDT Inhaled Oxygen Concentration - - Weight 90.3 kg (199 lb) 01/07/2025 10:22 AM CDT Height 172.7 cm (5' 8) 01/07/2025 10:22 AM CDT Body Mass Index 30.26 01/07/2025 10:22 AM CDT Plan of Treatment Upcoming Encounters Date Type Department Care Team (Latest Contact Info) Description 03/03/2025 9:30 AM CDT Hospital Encounter [facility]atheter[facility] [id number] [place] [id number] Eladio Preciado MD [address] [facility] [address] [address] Atypical chest pain 03/03/2025 9:30 AM CDT - 03/03/2025 11:00 AM CDT Surgery [facility]ter[facility] [id number] [place] [id number] Eladio Preciado MD [address], [address] [facility] [place] [address] LEFT HEART CATHETERIZATION WITH CORONARY ANGIOGRAPHY AND WITH OR WITHOUT LEFT VENTRICULOGRAM [id number] Health Maintenance Due Date Last Done Comments Albumin Creatinine Ratio, Urine 1950 Depression Screening 1950 Hepatitis C Screening 1950 Osteoporosis Screening-Bone Density Scan 1950 Dilated Eye Exam 1948 Foot Exam 1948 Hepatitis B Screening 1966 Pneumococcal vaccine 65+ (1 of 2 - PCV) 09/19/1967 Zoster Vaccine (1 of 2) 1998 Well Visit 65+ 2013 Hemoglobin A1C 12/06/2019 06/07/2019 eGFR 06/07/2020 06/07/2019 Lipid Panel 11/10/2024 11/11/2023, 12/0 10/2022, 04/24/2022, Additional history exists Influenza Vaccine (#1) 2025 Fall Risk Assessment 02/25/2026 02/25/2025 DTaP/Tdap/Td Vaccine (2 - Td or Tdap) 09/17/2028 09/17/2018 Procedures Procedure Name Priority Date/Time Associated Diagnosis Comments CT HEART MORPHOLOGY AND CORONARY ARTERIES W CONTRAST Schedule Routine, Read Routine (OP Routine) 02/11/2025 8:27 AM CDT Atypical chest pain POC ISTAT Routine 02/11/2025 8:12 AM CDT POCT LIPID PANEL Routine 11/11/2023 11:1 5 AM CDT Hyperlipidemia associated with type 2 diabetes mellitus (HCC) EGFR Routine 06/07/2019 11:20 AM SUPERVISOR COOK ROOM Paroxysmal atrial fibrillation (HCC) Essential hypertension FH ischemic heart disease Obstructive sleep apnea syndrome Mixed hyperlipidemia HEMOGLOBIN A1C Routine 06/07/2019 11:20 AM SUPERVISOR COOK ROOM Paroxysmal atrial fibrillation (HCC) Essential hypertension FH ischemic heart disease Obstructive sleep apnea syndrome Mixed hyperlipidemia Type 2 diabetes mellitus with other specified complication, unspecified whether jail insulin use (HCC) from Last 3 Months or Most Recently Relevant to Health Maintenance Results * CTA Heart and Coronary Arteries W Morphology when Performed (02/11/2025 8:27 AM CDT) Anatomical Region Laterality Modality Chest N/A Computed Tomogra phy 02/11/2025 10:4 0 AM CDT Impressions 02/11/2025 2:49 PM CDT 1. Calculated calcium score is 26. 2. Predominantly calcified plaque in the proximal right coronary artery resulting in up to severe (70%) stenosis. Consider FFR CT for further evaluation. 3. Possible noncalcified plaque in the mid left anterior descending artery which is not well evaluated due to motion but resulting in at most mild stenosis. Dictated by: Mariah Rosa M.D. The radiology attending physician has personally reviewed this study, and had reviewed and/or edited this written report and agrees with it. Electronically signed by: Michael Escobar M.D. Narrative 02/11/2025 2:49 PM CDT EXAMINATION: CORONARY CT ANGIOGRAM HISTORY: Chest pain. TECHNIQUE: CT angiography of the coronary arteries was performed after the administration of 100 mL of Optiray 350. Images were also obtained precontrast for the purposes of calcium scoring. 100 mg of metoprolol was administered intravenously prior to the examination. The patient's heart rate and blood pressure at the time of the examination were 59 beats per minute and 141/65 mmHg. Images were transferred to a 3D workstation for additional post-processing. COMPARISON: None FINDINGS: The coronary arteries are left system dominant. There is no anomalous coronary origin or course. Right coronary system: Normal origin of the right coronary artery arising from the right coronary sinus. Calcified plaque involving the proximal right coronary artery resulting in up to severe (approximately 70%) stenosis. Left coronary system: Normal origin of the left main coronary artery arising from the left coronary sinus. No obstructive calcified plaque is seen in the left coronary artery system. However, there is apparent noncalcified plaque in the mid left anterior descending artery that is not well evaluated due to motion, but causing at most mild (approximately 40%) stenosis. A calcified plaque is noted in the proximal left circumflex coronary artery resulting in minimal (less than 20%) stenosis. The calculated calcium score is 26. Other findings: No mediastinal or hilar lymphadenopathy by CT criteria. Calcified left lower lobe granuloma. Mild dependent atelectasis. Clear central airways. Partially imaged pneumobilia. Multilevel degenerative changes of the visualized spine with anterior osteophyte formation. Procedure Note Michael Escobar MD PhD - 02/11/2025 EXAMINATION: CORONARY CT ANGIOGRAM HISTORY: Chest pain. TECHNIQUE: CT angiography of the coronary arteries was performed after the administration of 100 mL of Optiray 350. Images were also obtained precontrast for the purposes of calcium scoring. 100 mg of metoprolol was administered intravenously prior to the examination. The patient's heart rate and blood pressure at the time of the examination were 59 beats per minute and 141/65 mmHg. Images were transferred to a 3D workstation for additional post-processing. COMPARISON: None FINDINGS: The coronary arteries are left system dominant. There is no anomalous coronary origin or course. Right coronary system: Normal origin of the right coronary artery arising from the right coronary sinus. Calcified plaque involving the proximal right coronary artery resulting in up to severe (approximately 70%) stenosis. Left coronary system: Normal origin of the left main coronary artery arising from the left coronary sinus. No obstructive calcified plaque is seen in the left coronary artery system. However, there is apparent noncalcified plaque in the mid left anterior descending artery that is not well evaluated due to motion, but causing at most mild (approximately 40%) stenosis. A calcified plaque is noted in the proximal left circumflex coronary artery resulting in minimal (less than 20%) stenosis. The calculated calcium score is 26. Other findings: No mediastinal or hilar lymphadenopathy by CT criteria. Calcified left lower lobe granuloma. Mild dependent atelectasis. Clear central airways. Partially imaged pneumobilia. Multilevel degenerative changes of the visualized spine with anterior osteophyte formation. IMPRESSION: 1. Calculated calcium score is 26. 2. Predominantly calcified plaque in the proximal right coronary artery resulting in up to severe (70%) stenosis. Consider FFR CT for further evaluation. 3. Possible noncalcified plaque in the mid left anterior descending artery which is not well evaluated due to motion but resulting in at most mild stenosis. Dictated by: Mariah Rosa M.D. The radiology attending physician has personally reviewed this study, and had reviewed and/or edited this written report and agrees with it. Electronically signed by: Michael Escobar M.D. us Jose Saavedra MD IM CT PROCEDURES Final R esult * POC ISTAT (02/11/2025 8:12 AM CDT) Creatinine, POC, bld 1.0 0.6 - 1.3 mg/dL POC Device Number [id number] [facility] Blood 02/11/2025 8:12 AM CDT 02/11/2025 8:12 AM CDT Ajay Rose MD LAB BLOOD ORDERABL ES Final Result [facility] [id number] [facility] [place] [address] * POCT lipid panel (11/11/2023 11:15 AM CDT) Cholesterol, POC 130 mg/dL HDL, POC 50 mg/dL Triglycerides, POC 180 mg/dL LDL Cholesterol POC 44 mg/dL Chol/HDL Ratio, POC 0.9 Non-HDL Cholesterol, POC 80 mg/dL Cholesterol Total, POC 130 mg/dL Capillary blood 11/11/2023 1 1:15 AM CDT Jose Saavedra MD POINT OF CARE TEST ORDERA BLES Final Result * eGFR (06/07/2019 11:20 AM SUPERVISOR COOK ROOM) eGFR >60 mL/min/1.7 3 m2 [facility] Comment: Interpretive Data Reference Interval Normal >/= 90 mL/min/1.73m2 Mildly decreased* 60 - 89 mL/min/1.73m2 Mildly to moderately decreased 45 - 59 mL/min/1.73m2 Moderately to severely decreased 30 - 44 mL/min/1.73m2 Severely decreased 15 - 29 mL/min/1.73m2 Kidney Failure < 15 mL/min/1.73m2 *Relative to young adult level If -Taiwanese multiply value by 1.16. Estimated glomerular filtration rate is determined by the CKD-EPI equation recommended by the National Kidney Foundation (KDIGO 2012 Clinical Practice Guideline for the Evaluation and Management of Chronic Kidney Disease. Kidney Intnl Suppl Jun 2012;3:1). The CKD-EPI equation should not be used for patients with unstable renal function and has not been validated in children and those over 70. Current interpretive data was last reviewed 2015. Blood specimen (specimen) 06/07/2019 11:20 AM SUPERVISOR COOK ROOM 06/07/2019 12:35 PM SUPERVISOR COOK ROOM Michael Carlin MD LAB BLOOD ORDERABLES Final Re sult Performing Organization Address [facility] Co de Phone Number [facility] [address] [facility] [employer] [place], [place] [id number] * (ABNORMAL) Hemoglobin A1c (06/07/2019 11:20 AM SUPERVISOR COOK ROOM) Hgb A1C 7.5(H) 4.0 - 5.6 % [facility] Comment:Testing performed by : [facility], [address] [place] [address]., [id number] Estimated Average Glucose 169 mg/dL [facility] Comment: The ADA recommends reporting an estimated Average Glucose (eAG) with all Hemoglobin A1c results using the equation derived from a study of 507 normal and diabetic adults. Minority populations were underrepresented and children were not included. (Diabetes Care 31:5818-2642, 2008). The eAG is not equivalent to a fasting glucose. Testing performed by: [facility], [address] [place] [address]., [id number] Blood specimen (specimen) 06/07/2019 11:20 AM SUPERVISOR COOK ROOM 06/07/2019 1:37 PM SUPERVISOR COOK ROOM Michael Carlin MD LAB BLOOD ORDERABLES Final Re sult Performing Organization Address [facility] de Phone Number [facility] [id number] [facility]. [facility] [place] [address] from Last 3 Months or Most Recently Relevant to Health Maintenance Insurance [employer]ICARE [place] [employer] [place] [employer] [place] MEDIC[employer] [place] [employer] Care Teams Etl Software Engineer Relationship Specialty Start Date End Date Rose, Ajay Silvino, MD PCP - General 09/05/16
--- OUTSIDE RECORDS SUMMARY | 2025-03-01 11:37 | XMS_ITS | Clinical Summary ---
Author Organization [facility] Address [address] Attn: Epic Prelude ADT [place] [address] Care Team Providers Care Cost Estimating Manager Name Role Phone Niles Brady MD, Lynette Lyon Primary Care Provider Sophia vailable Social History Tobacco Use Types Packs/Day Years Used Date Smoking Tobacco: Never Assessed Comments Unknown Sex and Gender Information Value Date Recorded Sex Assigned at Not on file Legal Sex Female 4:20 AM PHYSICIAN ASSISTANT Gender Identity Not on file Sexual Orientation Not on file Plan of Treatment Health Maintenance Due Date Last Done Comments DTAP/TDAP/TD VACCINES (1 - Tdap) 09/19/1967 PNEUMOCOCCAL VACCINE 50+ YEARS (1 of 1 - PCV) 09/18/18 99 ZOSTER VACCINE (1 of 2) 1998 OSTEOPOROSIS SCREENING 2013 RSV VACCINE (60+ or ) (1 - 1-dose 75+ series) 09/19/2023 INFLUENZA VACCINE (#1) 2024 Care Teams Cost Estimating Manager Relationship Specialty Start Date End Date Lynette Cage Jr., MD NO ADDRESS ON FILE PCP - General 11/24/03
--- OUTSIDE RECORDS SUMMARY | 2025-03-01 11:37 | XMS_ITS | Clinical Summary ---
Author Organization [facility] Care Team Providers Care Part Time Flexible Clerk Name Role Phone Unavailable Primary Care Provider Unavailabl e Social History Tobacco Use Types Packs/Day Years Used Date Smoking Tobacco: Never Assessed Comments Unknown Sex and Gender Information Value Date Recorded Sex Assigned at Not on file Legal Sex Female 9:48 AM LATEX DIPPER Gender Identity Not on file Sexual Orientation Not on file Plan of Treatment Health Maintenance Due Date Last Done Comments Hepatitis C Virus (HCV) Screening 1950 Pneumococcal Immunization (5 0+ years) (1 of 1 - PCV) 1998 Zoster Immunization (1 of 2) 1998 Respiratory Syncytial Virus (RSV) Immunization (Adult) (1 - 1-dose 75+ series) 09/19/2023 Influenza Immunization (#1) 2025 SARS-COV-2 Immunization ( - 2023- season) 2025 DTaP/Tdap/Td Immunization Discontinued 09/17/2018 TdaP Immunization Completed 09/17/2018 Hepatitis B Immunization Aged Out No longer eligible based on patient's age to complete this topic Human Papillomavirus (HPV) Immunization Aged Out No longer eligible b ased on patient's age to complete this topic Meningococcal Immunization (ACWY) Aged Out No longer eligible based on patient's age to complete this topic Rotavirus Immunization Aged Out No lo nger eligible based on patient's age to complete this topic
--- OUTSIDE RECORDS SUMMARY | 2025-03-01 11:37 | XMS_ITS | Encounter Summary ---
Author Organization [facility] Address [address] [place] [address] Care Team Providers Care Expansion Envelope Maker Hand Name Role Phone Niles Brady MD, Lynette Lyon Primary Care Provider Sophia vailable Encounter Details Date Type Department Care Team (Latest Contact Info) Description 11/24/2003 Outpatient Historical [facility] Cage Jr., Lynette Lyon MD NO ADDRESS ON FILE SCREENING MAMM-MAILG NEOPL-OTHER (Primary Dx) Social History Tobacco Use Types Packs/Day Years Used Date Smoking Tobacco: Never Assessed Comments Unknown Sex and Gender Information Value Date Recorded Sex Assigned at Not on file Legal Sex Female 4:20 AM BEHAVIORAL SPECIALIST Gender Identity Not on file Sexual Orientation Not on file documented as of this encounter Plan of Treatment Not on file documented as of this encounter Visit Diagnoses Diagnosis Other screening mammogram- Primary documented in this encounter Care Teams Expansion Envelope Maker Hand Relationship Specialty Start Date End Date Lynette Cage Jr., MD NO ADDRESS ON FILE PCP - General 11/24/03 documented as of this encounter
--- OUTSIDE RECORDS SUMMARY | 2025-03-01 11:37 | XMS_ITS | Encounter Summary ---
Author Organization [facility] Address [address] [place] [address] Care Team Providers Care Manager Employee Relations Name Role Phone Ajay Rose MD Primary Care Provider + Encounter Details Date Type Department Care Team (Late st Contact Info) Description 06/24/2019 Lab Requisition [facility] DermPath Lab [address] [facility], [place] [id number] Lulu Blanchard DO [address] [facility] 3 [place] [address] Social History Tobacco Use Types Packs/Day Years Used Date Smoking Tobacco: Never Assessed Comments Unknown Sex and Gender Information Value Date Recorded Sex Assigned at Female 02/08/2024 6:42 PM CDT Legal Sex Female 11:04 AM BOILERMAKER FITTER Gender Identity Female 02/08/2024 6:42 PM CDT Sexual Orientation Not on file documented as of this encounter Plan of Treatment Not on file documented as of this encounter Procedures Procedure Name Priority Date/Time Associated Diagnosis Comments DERMATOPATHOLOGY Routine 06/23/2019 12:0 0 AM BOILERMAKER FITTER documented in this encounter Results * DERMATOPATHOLOGY (06/23/2019 12:00 AM BOILERMAKER FITTER) Case Report Dermatopathology Report Case: [id number] Authorizing Provider: Lulu Blanchard DO Collected: 06/23/2019 12:00 AM Ordering Location: [facility] DermPath Lab Received: 06/24/2019 11:02 AM Pathologist: Carey Bhakta MD Specimen: Skin, right leg 0 1:08 PM [facility] DERMATOPATHOLOGY LABORATORY Final Diagnosis Specimen A. SKIN, right leg: SPONGIOTIC DERMATITIS WITH EOSINOPHILS (L30.8) STASIS DERMATITIS (L30.8) (see microscopic description and comment) 0 1:08 PM [facility] DERMATOPATHOLOGY LABORATORY at 1308 BOILERMAKER FITTER Clinical History Stasis vs ACD R/O other. 0 1:08 PM [facility] DERMATOPATHOLOGY LABORATORY Gross Description Specimen A: Received is one formalin filled container labeled with the patient's name and designated right leg. The specimen consists of a shave measuring [id number]. Jar 0. 0 1:08 PM [facility] DERMATOPATHOLOGY LABORATORY Microscopic Description Specimen A. SKIN, right leg: There are layers of parakeratosis and orthokeratosis with intervening collections of neutrophils. The epidermis shows spongiosis. In the dermis there is a mainly superficial perivascular lymphohistiocytic inflammatory infiltrate with eosinophils. There is an increased number of dilated, thick-walled vessels in the superficial dermis. Grocott's methenamine silver (GMS) stain fails to highlight fungal elements in the available sections. COMMENT: The histological differential diagnosis includes a contact dermatitis, stasis dermatitis, an eczematous drug eruption, and less likely the urticarial phase of bullous pemphigoid. 0 1:08 PM [facility] DERMATOPATHOLOGY LABORATORY Disclaimer An external and internal positive and negative controls are appropriate for the histochemical, immunohistochemical and immunofluorescence stain(s) in this case (if any), except where stated explicitly. The performance characteristics of the stain(s) cited in this report were developed and its performance characteristic determined by the Dermatopathology Laboratory at [facility], directed by Dr. Matias Viramontes. These tests need not be, and therefore are not, approved by the [place] Food and Drug Administration. The tests are used for clinical purposes. Billing Codes Specimen Charges Stain Charges 68976 1 12473 1 0 1:08 PM [facility] DERMATOPATHOLOGY LABORATORY Embedded Images 0 1:08 PM [facility] DERMATOPATHOLOGY LABORATORY Pathology/Cytolog y TISSUE SPECIMEN FROM SKIN / Unknown 06/23/2019 06/24/2019 11:02 AM BOILERMAKER FITTER us Lulu Blanchard DO LAB - PATHOLOGY/CYTOLOGY ORDERABLES Final Result DERMATOPATHOLOGY LABORATORY [facility] - Department of Dermatology [address] [place] [address], 5th [place] [address], [facility] [phone] documented in this encounter Visit Diagnoses Not on filedocumented in this encounter Care Teams Manager Employee Relations Relationship Specialty Start Date End Date Ajay Rose MD [address] [address] PCP - General 06/23/19 documented as of this encounter
--- OUTSIDE RECORDS SUMMARY | 2025-03-01 11:37 | XMS_ITS | Encounter Summary ---
Author Organization [facility] Address [address] [facility] [place] [address] Care Team Providers Care Igniter Capper Name Role Phone Ajay Rose MD Primary Care Provider + Encounter Details Date Type Department Care Team (Late st Contact Info) Description 10/27/2019 Lab Requisition [facility] DermPath Lab [address] [facility], [place] [phone] Lulu Blanchard DO [address] [facility] 3 [place] [address] Social History Tobacco Use Types Packs/Day Years Used Date Smoking Tobacco: Never Assessed Comments Unknown Sex and Gender Information Value Date Recorded Sex Assigned at Female 02/08/2024 6:42 PM CDT 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 Gender Identity Female 02/08/2024 6:42 PM CDT Sexual Orientation Not on file documented as of this encounter Plan of Treatment Not on file documented as of this encounter Procedures Procedure Name Priority Date/Time Associated Diagnosis Comments DERMATOPATHOLOGY Routine 10/26/2019 12:0 0 AM CDT documented in this encounter Results * DERMATOPATHOLOGY (10/26/2019 12:00 AM CDT) Case Report Dermatopathology Report Case: [id number] Authorizing Provider: Lulu Blanchard DO Collected: 10/26/2019 12:00 AM Ordering Location: [facility] DermPath Lab Received: 10/27/2019 12:38 PM Pathologist: Tiffanie Viramontes MD Specimen: Skin, right lower extremity 0 5:52 PM CDT DERMATOPATHOLOGY LABORATORY Final Diagnosis Specimen A. SKIN, right lower extremity: SEBORRHEIC KERATOSIS, MACULAR (L82.1) STASIS DERMATITIS (L30.8) 0 5:52 PM CDT DERMATOPATHOLOGY LABORATORY at 1752 CDT Clinical History ISk R/O atypia. 0 5:52 PM CDT DERMATOPATHOLOGY LABORATORY Gross Description Specimen A: Received is one formalin filled container labeled with the patient's name and designated right lower extremity. The specimen consists of a shave measuring [id number]. Jar 0. 0 5:52 PM CDT DERMATOPATHOLOGY LABORATORY Microscopic Description Specimen A. SKIN, right lower extremity: Sections show a relatively broad, flat proliferation of small keratinocytes. The surface is gently papillated, and there is increased basilar pigmentation. There is focal spongiosis. The dermis shows a sparse, perivascular lymphocytic infiltrate surrounding dilated, thick-walled vessels, which are increased in number. 0 5:52 PM CDT DERMATOPATHOLOGY LABORATORY Disclaimer An external and internal positive and negative controls are appropriate for the histochemical, immunohistochemical and immunofluorescence stain(s) in this case (if any), except where stated explicitly. The performance characteristics of the stain(s) cited in this report were developed and its performance characteristic determined by the Dermatopathology Laboratory at [facility], directed by Dr. Matias Viramontes. These tests need not be, and therefore are not, approved by the [place] Food and Drug Administration. The tests are used for clinical purposes. Billing Codes Specimen Charges Stain Charges 35255 1 0 5:52 PM CDT DERMATOPATHOLOGY LABORATORY Embedded Images 0 5:52 PM CDT DERMATOPATHOLOGY LABORATORY Pathology/Cytolog y TISSUE SPECIMEN FROM SKIN / Unknown 10/26/2019 10/27/2019 12:38 PM CDT us Lulu Blanchard DO LAB - PATHOLOGY/CYTOLOGY ORDERABLES Final Result DERMATOPATHOLOGY LABORATORY [facility] - Department of Dermatology [address] Reporter Gary/[address] [phone] documented in this encounter Visit Diagnoses Not on filedocumented in this encounter Care Teams Igniter Capper Relationship Specialty Start Date End Date Ajay Rose MD [address] [address] PCP - General 06/23/19 documented as of this encounter
--- OUTSIDE RECORDS SUMMARY | 2025-03-01 11:37 | XMS_ITS | Clinical Summary ---
Author Organization [facility] Address [address] [facility] [address] Care Team Providers Care Frame Trimmer Name Role Phone Ajay Rose MD Primary Care Provider + Source Comments [facility],non-owned Affiliates and Associated Physician Practices is amultiple site organization consisting of ambulatory clinics and hospital sitesin [place], [place], [place] and [place]. This disclosure is being madepursuant to the Care Everywhere program and may not contain all information available regarding this patient. Last updated 18.[facility] Allergies Active Allergy Reactions Criticality Noted Date Comments Lisinopril Urticaria Medium 12/07/2019 Penicillins Urticaria Medium 12/07/2019 Medications * Be aware that medications may not be up to date on this document. Alwaysverify current medications with the patient. potassium chloride ER (KLOR-CON) 10 MEQ tablet Take 1 (one) tablet by mouth once daily 0 Active metoprolol succinate XL 24hr (TOPROL XL) 50 MG tablet Take 1 (one) tablet by mouth once daily 0 Active losartan (COZAAR) 100 MG tablet Take 1 (one) tablet by mouth once daily 0 Active apixaban (ELIQUIS) 5 MG tablet Take 1 (one) tablet by mouth 2 times daily (patient states she takes half tab in AM and full tab in PM) 8 Active cetirizine (ZYRTEC) 10 MG tablet Take 1 (one) tablet by mouth once daily Active hydroCHLOROthi azide (HYDRODIURIL) 25 MG tablet Take 1 (one) tablet by mouth once daily 1 Active glimepiride (AMARYL) 2 MG tablet 1 Active acetaminophen (Tylenol) 325 MG tabletIndicati ons:Cystocele with prolapse Take 2 (two) tablets by mouth every 6 hours as needed for Fever or Pain Maximum allowable Acetaminophen amount = 4 Grams (4000 mg) / 24 hours. 30 tablet 2 Active OneTouch Ultra test strip USE 1 STRIP TO CHECK GLUCOSE ONCE DAILY 2 Active rosuvastatin (Crestor) 10 MG tablet Take 1 (one) tablet by mouth once daily 4 Active SITagliptin (Januvia) 25 MG tablet Take 1 (one) tablet by mouth once daily Active Active Problems Problem Noted Date Diagnosed Date Cystocele with prolapse 04/03/2022 History of artificial joint 09/05/2016 History of open heart surgery 04/24/2016 Obstructive sleep apnea syndrome 10/09/2015 Diabetes mellitus 07/13/2015 Hypertension 07/13/2015 Obesity 07/13/2015 Paroxysmal atrial fibrillation 06/20/2015 Overview (09/05/2020): Annotation: s/p ablation on 03/18/2016 Family History Medical History Relation Name Comments None Known Brother CVA Father Cancer - Skin, Non Melanoma Father None Known Maternal Aunt None Known Maternal Grandfather None Known Maternal Grandmother None Known Maternal Uncle Cancer - Other Mother None Known Other None Known Paternal Aunt None Known Paternal Grandfather None Known Paternal Grandmother None Known Paternal Uncle None Known Sister Asthma Neg Hx Cancer - Breast Neg Hx Cancer - Skin, Melanoma Neg Hx Eczema Neg Hx Hemophilia Neg Hx Psoriasis Neg Hx Relation Name Status Comments Brother Father Maternal Aunt Maternal Grandfather Maternal Grandmother Maternal Uncle Mother Other Paternal Aunt Paternal Grandfather Paternal Grandmother Paternal Uncle Sister Social History Tobacco Use Types Packs/Day Years Used Date Smoking Tobacco: Never Smokeless Tobacco: Never Tobacco Cessation:Counseling Given: Not Answered Alcohol Use Standard Drinks/Week Comments Yes 0 (1 standard drink = 0.6 oz pur e alcohol) rarely AUDIT-C Answer Date Recorded Q1: How often do you have a drink containing alc ohol? Never 04/03/2022 Average Number of Drinks Not on file 022 Frequency of Binge Drinking Not on file 07/2021 Hunger Vital Sign Answer Date Recorded Within the past 12 months, y ou worried that your food would run out before you got the money to buy more. Never true 04/04/20 Within the past 12 months, t he food you bought just didn't last and you didn't have money to get more. 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 Gender Identity Female 02/08/2024 6:42 PM CDT Sexual Orientation Not on file Last Filed Vital Signs Vital Sign Reading Time Taken Comments Blood Pressure 134/80 05/31/2024 8:21 AM HUMAN DEVELOPMENT PROFESSOR Pulse 70 07/15/2022 2:45 PM HUMAN DEVELOPMENT PROFESSOR Temperature 36.3 C (97.4 F) 09/08/2023 10:05 AM CDT Respiratory Rate 16 04/04/2022 8:55 AM CDT Oxygen Saturation 98% 04/04/2022 8:55 AM CDT Inhaled Oxygen Concentration - - Weight 98.4 kg (217 lb) 05/31/2024 8:21 AM HUMAN DEVELOPMENT PROFESSOR Height 172.7 cm (5' 8) 05/31/2024 8:21 AM HUMAN DEVELOPMENT PROFESSOR Body Mass Index 32.99 05/31/2024 8:21 AM HUMAN DEVELOPMENT PROFESSOR Plan of Treatment Health Maintenance Due Date Last Done Comments BONE DENSITY TESTING 1950 MEDICARE AWV 12 MONTHS 1950 HEPATITIS C SCREENING 09/14/1966 DTAP/TDAP/TD VACCINES (1 - Tdap) 09/19/1967 PNEUMOCOCCAL VACCINE 50+ (1 of 2 - PCV) 09/19/1967 ZOSTER VACCINE (1 of 2) 1998 DIABETES RETINOPATHY SCREENING 09/05/2020 DIABETES-FOOT EXAM WITH MONOFILAMENT 09/05/2020 DIABETES-HGB A1C 09/05/2020 06/07/2019 DIABETES-SERUM CREATININE 03/25/2023 03/25/2022 Respiratory Syncytial Virus (RSV) Vaccine Pt: or over 60 yrs (1 - 1-dose 75+ series) 09/19/2023 DEPRESSION SCREENING 06/02/2024 DIABETES - URINE PROTEIN SCREENING 06/02/2024 COVID-19 VACCINE ( season) 2025 05/28/2022, 04/16/2021, 09/01/2020, Additional history exists INFLUENZA VACCINE (#1) 2025 03/04/2022 HEPATITIS B VACCINE Aged Out No longe r eligible based on patient's age to complete this topic HIB VACCINE Aged Out No longer eligi ble based on patient's age to complete this topic HPV VACCINE Aged Out No longer eligi ble based on patient's age to complete this topic MENINGOCOCCAL (Group B) VACCINE SHARED DECISION-MAKING Aged Out No longer eligible based on patient's age to complete this topic MENINGOCOCCAL GROUPS A/C/Y/W VACCINE Aged Out No longer eligible based on patient's age to complete this topic Medical Devices Implanted Type Area Gray Mixing Operator Device Identifier Shelf Expiration Date Model / Serial / Lot Manual Lipstick Molder - Implant Non-Ortho - [id number] Implanted:Qty: 1 on 04/03/2022 by Tony Gordon MD at [facility] N/A: Vagina [employer] 10/31/2023 [id number] / [id number] / [id number] Procedures Procedure Name Priority Date/Time Associated Diagnosis Comments COMPREHENSIVE METABOLIC PANEL Routine 03/25/2022 3:27 PM CDT Pre-op testing from Last 3 Months or Most Recently Relevant to Health Maintenance Results * (ABNORMAL) COMPREHENSIVE METABOLIC PANEL (03/25/2022 3:27 PM CDT) Glucose 133(H) 65 - 99 mg/dL [facility] Comment: Fasting reference interval For someone without known diabetes, a glucose value >125 mg/dL indicates that they may have diabetes and this should be confirmed with a follow-up test. BUN 25 7 - 25 mg/dL [facility] Creatinine 0.79 0.60 - 1.00 mg/dL [facility] eGFR by Cystatin C 79 > OR = 60 mL/min/1. 73m2 [facility] Comment: The eGFR is based on the CKD-EPI 2020 equation. To calculate the new eGFR from a previous Creatinine or Cystatin C result, go to https://www.kidney.org/professionals/ kdoqi/gfr%5Fcalculator BUN/Creatinine Ratio NOT APPLICABLE 6 - (calc) [facility] Sodium 138 135 - 146 mmol/L [facility] Potassium 3.5 3.5 - 5.3 mmol/L [facility] Chloride 103 98 - 110 mmol/L [facility] CO2 27 20 - 32 mmol/L [facility] Calcium 9.6 8.6 - 10.4 mg/dL [facility] Protein Total 7.1 6.1 - 8.1 g/dL [facility] Albumin 4.3 3.6 - 5.1 g/dL [facility] Globulin Total 2.8 1.9 - 3.7 g/dL (calc) [facility] Albumin/Globuli n Ratio 1.5 1.0 - 2.5 (calc) [facility] Bilirubin Total 0.6 0.2 - 1.2 mg/dL [facility] Alkaline Phosphatase 74 37 - 153 U/L [facility] AST 13 10 - 35 U/L [facility] ALT 12 6 - 29 U/L [facility] Comment: Test Performed at: [facility] [address] [place] [address] RAJ DOWNS DO,MPH Blood BLOOD SPECIMEN / Unknown 03/25/2022 3:27 PM CDT 03/25/2022 3:27 PM CDT us Tony Gordon MD LAB - CHEMISTRY ORDERABLES Erika rea Result Performing Organization Address City/State/[facility] Co de Phone Number [facility] [address] [place] [address] from Last 3 Months or Most Recently Relevant to Health Maintenance Insurance [place]IC[place] [address] Care Teams Frame Trimmer Relationship Specialty Start Date End Date Ajay Rose MD [address] [facility] [address] [place] [address] PCP - General 06/23/19
--- OUTSIDE RECORDS SUMMARY | 2025-03-01 11:37 | XMS_ITS | Encounter Summary ---
Author Organization [facility] Address [address] [facility] [place] [address] Care Team Providers Care Round Boner Name Role Phone Ajay Rose MD Primary Care Provider + Encounter Details Date Type Department Care Team (Late st Contact Info) Description 12/17/2021 Telephone [facility] [address] [place] [address] Juliocesar Zamora MD [address] 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
--- OUTSIDE RECORDS SUMMARY | 2025-03-01 11:37 | XMS_ITS | Encounter Summary ---
Author Organization [facility] Address [address] [facility] [place] [address] Care Team Providers Care Tax Intern Name Role Phone Ajay Rose MD Primary Care Provider + Encounter Details Date Type Department Care Team (Late st Contact Info) Description 10/15/2022 Lab Requisition [facility] - DermPath Lab [address] [facility], [place] [address] Lulu Blanchard, DO [address] [facility] [address]L [place] [address] Social History Tobacco Use Types Packs/Day Years [...] money to buy more. Never true 04/04/20 22 Within the past 12 months, t he food you bought just didn't last and you didn't have money to get more. 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 Gender Identity Female 02/08/2024 6:42 PM CDT Sexual Orientation Not on file documented as of this encounter Plan of Treatment Not on file documented as of this encounter Procedures Procedure Name Priority Date/Time Associated Diagnosis Comments DERMATOPATHOLOGY Routine 10/15/2022 2:13 PM CDT documented in this encounter Results * DERMATOPATHOLOGY (10/15/2022 2:13 PM CDT) Case Report Dermatopathology Report Case: [id number] Authorizing Provider: Lulu Blanchard DO Collected: 10/15/2022 02:13 PM Ordering Location: [facility] DermPath Lab Received: 10/17/2022 05:53 AM Pathologist: Tiffanie Viramontes MD Specimen: Skin, lower abdomen lateral, lower abdomen medial 5:02 PM CDT DERMATOPATHOLOGY LABORATORY Final Diagnosis Specimen A. 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 The specimen consists of a shave biopsy measuring [id number] mm. Jar 0. 5:02 PM CDT DERMATOPATHOLOGY LABORATORY Microscopic Description Specimen A. SKIN, lower abdomen lateral, lower abdomen medial: The epidermis shows parakeratosis, full thickness disorderly maturation of keratinocytes, mitoses at different levels, and dyskeratotic cells. This lesion is present at one lateral margin of the specimen in block 2. There are fibroblasts and collagen bundles oriented parallel to the skin surface with elongated blood vessels, some of which are oriented perpendicular to the skin surface. 5:02 PM CDT DERMATOPATHOLOGY LABORATORY Disclaimer An external and internal positive and negative controls are appropriate for the histochemical, immunohistochemical and immunofluorescence stain(s) in this case (if any), except where stated explicitly. The performance characteristics of the stain(s) cited in this report were developed and its performance characteristic determined by the Dermatopathology Laboratory at [facility], directed by Dr. Matias Viramontes. These tests need not be, and therefore are not, approved by the [place] Food and Drug Administration. The tests are used for clinical purposes. Billing Codes Specimen Charges Stain Charges 33953 1 3 5:02 PM CDT DERMATOPATHOLOGY LABORATORY Embedded Images 3 5:02 PM CDT DERMATOPATHOLOGY LABORATORY Pathology/Cytolo gy TISSUE SPECIMEN FROM SKIN / Unknown 10/15/2022 2:13 PM CDT 10/17/2022 5:53 AM CDT us Lulu Blanchard DO LAB - PATHOLOGY/CYTOLOGY ORDERABLES Final Result DERMATOPATHOLOGY LABORATORY [facility] - Department of Dermatology [facility] Medicine [address] [place] [address], [address]rd [address] [phone] documented in this encounter Visit Diagnoses Not on filedocumented in this encounter Care Teams Tax Intern Relationship Specialty Start Date End Date Ajay Rose MD [address] [place] [address] PCP - General 06/23/19 documented as of this encounter
[2025-03-01 11:41] LABS: Hemoglobin A1C 6.7 % (<5.7)
[2025-03-01 11:43] LABS: Iron 74 ug/dL (37-170)
[2025-03-01 11:54] LABS: Percent Iron Saturation 17 % (20-50)
[2025-03-01 12:09] LABS: Alanine Aminotransferase 18 U/L (6-35); Albumin Level 4.5 g/dL (3.5-5.1); Alkaline Phosphatase 58 U/L (38-126); Anion Gap 9 mmol/L (4-12); Aspartate Amino Transferase 30 U/L (14-36); Bilirubin,Total 0.8 mg/dL (0.2-1.3); Blood Urea Nitrogen 25 mg/dL (7-17); Calcium 9.4 mg/dL (8.4-10.2); Carbon Dioxide 25 mmol/L (22-30); Chloride 105 mmol/L (98-107); Estimated Glomerular Filt Rate > 60; Glucose 149 mg/dL (65-110); Potassium 3.9 mmol/L (3.4-5.0); Sodium 139 mmol/L (137-145); Total Protein 7.7 g/dL (6.3-8.2)
[2025-03-01 12:23] LABS: Ferritin 58.50 ng/mL (11.1-264)
[2025-03-01 13:20] LABS: Vitamin B12 284.0 pg/mL (239-931)
== END 2025-03-01 10:49 | disposition home or self-care (01) ==
PROVIDERS: PCP Family Medicine Adolescent Medicine; Referring Provider Internal Medicine Cardiovascular Disease; Visit Provider Family Medicine Adolescent Medicine
DX: M17.0 Bilateral primary osteoarthritis of knee (principal); E78.5 Hyperlipidemia, unspecified; I10 Essential (primary) hypertension; E11.42 Type 2 diabetes mellitus with diabetic polyneuropathy; I48.0 Paroxysmal atrial fibrillation; K76.0 Fatty (change of) liver, not elsewhere classified; D64.9 Anemia, unspecified; Z79.01 Long term (current) use of anticoagulants
CPT/HCPCS: 36415; 73562; 80053; 82607; 82728; 82746; 83036; 83540; 83550; 85027